=== PATIENT | female | born 1930 | race American Indian/Alaskan Native ===

== ENCOUNTER 2017-06-03 16:28 | Inpatient (IN) | payer MEDICARE ==
[2017-06-03 16:38] VITALS: BMI 33.4
--- NOTE | 2017-06-03 17:29 | C.PDOC ---
History Of Present Illness <Paulette Fritz - Last Filed: 06/03/17 17:44> <Zoraida Davis - Last Filed: 06/03/17 23:04> 86 yr old female with PMHx of Dementia and Alzheimer's disease, sent to the ER by Dr. Diaz for evaluation of SOB and possible fluids in the lung. Son at bedside reports the patient as admitted at [facility] for 1 week and was discharged 3 days ago and he took the patient to the doctor for a check up today. Son also reports the patient has also been complaining of bilateral knee pain and ROS is limited from patient. Son denies fever, vomiting or LOC. (Zoraida Davis) <Paulette Fritz - Last Filed: 06/03/17 17:44> History Per: Family (Son) Onset/Duration Of Symptoms: Days <Zoraida Davis - Last Filed: 06/03/17 23:04> Time Seen by Provider: 06/03/17 17:15 Chief Complaint (Nursing): Shortness Of Breath Past Medical History Reviewed: Historical Data, Nursing Documentation, Vital Signs - Medical History PMH: Alzheimer's Disease, Dementia, HTN, Hypercholesterolemia, Chronic Kidney Disease Family History: States: No Known Family Hx - Social History Hx Tobacco Use: No Hx Alcohol Use: No Hx Substance Use: No - Immunization History Hx Tetanus Toxoid Vaccination: No Hx Influenza Vaccination: No Hx Pneumococcal Vaccination: No <Zoraida Davis - Last Filed: 06/03/17 23:04> Vital Signs: Last Vital Signs Temp 97.5 F L 06/03/17 20:08 Pulse 62 06/03/17 20:54 Resp 18 06/03/17 20:21 BP 135/83 06/03/17 20:08 Pulse Ox 95 06/03/17 20:08 - [facility] Procedures INSERT OF MONITOR DEV INTO CHEST SUBCU/FASCIA, OPEN APPROACH (10/04/16) Review Of Systems Except As Marked, All Systems Reviewed And Found Negative. Constitutional: Negative for: Fever Gastrointestinal: Negative for: Vomiting <Zoraida Davis - Last Filed: 06/03/17 23:04> Physical Exam - Physical Exam Appears: Non-toxic, No Acute Distress Skin: Warm, Dry, No Rash Head: Atraumatic, Normacephalic Oral Mucosa: Moist Cardiovascular: Rhythm Irregular (Irregular regular rhythm) Respiratory: No Wheezing, Other ((+) Crackles in the right base) Extremity: Normal ROM, No Swelling Neurological/Psych: Other (Patient is alert and oriented x2.) <Zoraida Davis - Last Filed: 06/03/17 23:04> ED Course And Treatment - Laboratory Results Result Diagrams: 06/03/17 17:29 06/03/17 17:29 ECG: Interpreted By Me ECG Rhythm: Sinus Rhythm Interpretation Of ECG: ekg shows NSR at 66BPM,occasional APC's,intervals all wnl,no acute st or t wave abnormalities. Rate From EC (BPM) O2 Sat by Pulse Oximetry: 98 (RA) Pulse Ox Interpretation: Normal <Zoraida Davis - Last Filed: 06/03/17 23:04> Disposition <Paulette Fritz - Last Filed: 06/03/17 17:44> Discussed With : Estela Diaz - Disposition Disposition Time: 17:41 <Zoraida Davis - Last Filed: 06/03/17 23:04> - Disposition Condition: GUARDED - Clinical Impression Clinical Impression: Arrhythmia, SOB (shortness of breath), Chronic congestive heart failure <Paulette Fritz - Last Filed: 06/03/17 17:44> - Scribe Statement The provider has reviewed the documentation as recorded by the Scribe <Zoraida Davis - Last Filed: 06/03/17 23:04> - Scribe Statement Becki Ornelas (Zoraida Davis) Provider Attestation: All medical record entries made by the Scribe were at my direction and personally dictated by me. I have reviewed the chart and agree that the record accurately reflects my personal performance of the history, physical exam, medical decision making, and the department course for this patient. I have also personally directed, reviewed, and agree with the discharge instructions and disposition. (Zoraida Davis) Decision To Admit - . Admitting Physician: Estela Diaz <Paulette Fritz - Last Filed: 06/03/17 17:44> - Pt Status Changed To: Hospital Disposition Of: Observation - . Bed Request Type: Telemetry <Zoraida Davis - Last Filed: 06/03/17 23:04> - . Patient Diagnosis: Arrhythmia, SOB (shortness of breath), Chronic congestive heart failure
[2017-06-03 17:43] LABS: CHLORIDE 102 mmol/L (98-107); SODIUM 140 mmol/L (132-148)
[2017-06-03 17:45] LABS: GFR AFRICAN-AMERICAN 37
[2017-06-03 17:46] LABS: ALB/GLOB RATIO 1.1 (1.0-2.1); ALKALINE PHOSPHATASE 70 U/L (38-126); ALT/SGPT 53 U/L (9-52); AST/SGOT 44 U/L (14-36); BILIRUBIN,TOTAL 0.7 mg/dL (0.2-1.3); BLOOD UREA NITROGEN 44 mg/dL (7-17); CALCIUM 9.8 mg/dl (8.6-10.4); CARBON DIOXIDE 19 mmol/L (22-30); GLUCOSE,RANDOM 87 mg/dL (65-105); POTASSIUM 5.6 mmol/L (3.6-5.2); TOTAL PROTEIN 8.3 g/dL (6.3-8.3)
--- NOTE | 2017-06-03 18:07 | RAD ---
HISTORY: SOB COMPARISON: Chest x-ray performed 10/04/16 TECHNIQUE: Chest, one view. FINDINGS: Examination limited by habitus. LUNGS: Rectangular radiopaque device projects over the right upper mediastinum/right upper lobe. Right hilar prominence. No focal consolidation. Please note that chest x-ray has limited sensitivity for the detection of pulmonary masses. PLEURA: No significant pleural effusion identified. No definite pneumothorax . CARDIOVASCULAR: Mild cardiomegaly. Atherosclerotic calcifications of the aortic knob. Ectatic aorta. OSSEOUS STRUCTURES: Degenerative changes. VISUALIZED UPPER ABDOMEN: Unremarkable. OTHER FINDINGS: None. IMPRESSION: Biapical pleural thickening. Right hilar prominence. Rectangular radiopaque device projects over the right upper mediastinum/right upper lobe. Mild cardiomegaly. Atherosclerotic calcifications of the aortic knob. Ectatic aorta.
[2017-06-03 18:30] LABS: BASO % 0.6 % (0.0-2.0); EOS # 0.3 K/uL (0.0-0.7); HEMATOCRIT 42.2 % (34.0-47.0); LYMPH # 2.4 K/uL (1.0-4.3); LYMPH % 34.7 % (20.0-40.0); MEAN CELL VOLUME 98.3 fL (81.0-99.0); MEAN CORPUSCULAR HEMOGLOBIN 32.3 pg (27.0-31.0); MEAN CORPUSCULAR HGB CONC 32.9 g/dL (33.0-37.0); MEAN PLATELET VOLUME 9.9 fL (7.2-11.7); MONO # 0.6 K/uL (0.0-0.8); MONO % 8.3 % (0.0-10.0); NRBC % 0.1 % (0.0-2.0); RED CELL DISTRIBUTION WIDTH 15.6 % (11.5-14.5); WHITE BLOOD COUNT 6.8 K/uL (4.8-10.8)
[2017-06-03] MEDS: Albuterol-Ipratrop 3 mg / 0.5 (3 ml) UD INH SCH (20:04)
[2017-06-03 20:24] LABS: ABG ALLEN TEST POS; DRAW SITE LRADIAL
[2017-06-04] MEDS: Albuterol-Ipratrop 3 mg / 0.5 (3 ml) UD INH SCH ×4 (01:20→19:35)
[2017-06-04] MEDS ORDERED: Heparin25000 units/250ml 1/2NS 25,000 UNITS/250 ML BAG IV PRN (11:13)
--- NOTE | 2017-06-04 11:18 | CP.PCM.PN ---
Subjective - Date & Time of Evaluation Date of Evaluation: 06/04/17 Time of Evaluation: 11:17 - Subjective Subjective: PT SEEN BY DR. ECHAVARRIA DURING ROUNDS. DISCUSSED RECOMMENDATIONS FOR TREATMENT WITH DR. ECHAVARRIA. AT THIS TIME HE IS RECOMMENDING A HEPARIN GTT (D/C HEPARIN PROPHYLACTIC DOSE), CTA OR VQ TO R/O PE CONSIDERING EVELATED DDIMER, AND REPEAT ECHO (LAST ONE DONE 10/04/16). WILL F/U WITH RESULTS AND WILL DISCUSS THIS WITH DR. SHELBY. Objective - Vital Signs/Intake and Output Vital Signs (last 24 hours): Temp Pulse Resp BP Pulse Ox 97.4 F L 64 20 103/62 95 06/04/17 07:30 06/04/17 08:45 06/04/17 07:30 06/04/17 07:30 06/04/17 07:30 - Medications Medications: Current Medications Albuterol/Ipratropium (Duoneb 3 Mg/0.5 Mg (3 Ml) Ud) 3 ml INH RQ6 [facility] Last Admin: 06/04/17 08:03 Dose: 3 ml Aspirin (Ecotrin) 81 mg PO DAILY [facility] Last Admin: 06/04/17 09:23 Dose: 81 mg Donepezil HCl (Aricept) 1 mg PO HS [facility] Last Admin: 06/03/17 21:39 Dose: 1 mg Heparin Sodium/Sodium Chloride (Heparin 07527 Units/250ml 1/2 Normal Saline) 25 ,000 units in 250 mls @ 13.227 mls/hr IV .[id number] PRN; Protocol; 18 UNITS/KG/HR PRN Reason: ADJUST RATE PER PROTOCOL Quetiapine Fumarate (Seroquel) 25 mg PO DAILY [facility] Last Admin: 06/04/17 09:23 Dose: 25 mg Quetiapine Fumarate (Seroquel) 25 mg PO BID [facility] Last Admin: 06/04/17 11:04 Dose: Not Given Rosuvastatin Calcium (Crestor) 5 mg PO HS [facility] Last Admin: 06/03/17 21:39 Dose: 5 mg - Labs Labs: 06/03/17 17:29 06/03/17 17:29
[2017-06-04 12:01] LABS: HEMATOCRIT 37.8 % (34.0-47.0); MEAN CELL VOLUME 96.6 fL (81.0-99.0); MEAN CORPUSCULAR HEMOGLOBIN 32.8 pg (27.0-31.0); MEAN CORPUSCULAR HGB CONC 33.9 g/dL (33.0-37.0); MEAN PLATELET VOLUME 10.2 fL (7.2-11.7); RED CELL DISTRIBUTION WIDTH 15.3 % (11.5-14.5)
[2017-06-04 12:33] LABS: POTASSIUM 4.3 mmol/L (3.6-5.2)
[2017-06-04 12:35] LABS: BILIRUBIN,TOTAL 0.7 mg/dL (0.2-1.3)
[2017-06-04 12:36] LABS: ALB/GLOB RATIO 1.1 (1.0-2.1); CALCIUM 9.5 mg/dl (8.6-10.4); TOTAL PROTEIN 7.6 g/dL (6.3-8.3)
--- NOTE | 2017-06-04 13:46 | CP.PCM.CON ---
<Pacheco Benites - Last Filed: 06/04/17 18:47> History of Present Illness - History of Present Illness History of Present Illness: Cardiology Consult Note- Dr. Yanes's service CC: shortness of breath HPI: 86 year old female with past medical history significant for Alzheimer's disease, HTN, hypercholesterolemia and chronic kidney disease presents with chief complaint of shortness of breath as well as suspected pleural effusion by primary provider, Dr. Diaz. Per family, patient was recently at [facility] with recent discharge for dyspnea as well. Patient had previously been short of breath for the past two weeks. A workup was done which ruled out pulmonary embolism. Prior to this, patient was admitted here at [facility] earlier in the year for shortness of breath yet again. Patient denies chest pain, palpitations, dyspnea, headaches, subjective fevers or chills, nausea, vomiting , or diarrhea at this time. Parts of the history obtained from medical record due to patient's somnolent presentation. PMHx- as mentioned above PSHx- Colectomy in 2003, Portacath placement for colon cancer treatment Fam Hx- Noncontributory Meds- Refer to [facility] Social Hx- Unknown smoking history, no alcohol or drug use; Lives with family Allergies- NKDA Review of Systems - Constitutional Constitutional: absent: Anorexia, Chills - EENT Eyes: absent: Blurred Vision, Change in Vision - Cardiovascular Cardiovascular: Dyspnea. absent: Chest Pain, Chest Pain at Rest - Respiratory Respiratory: Dyspnea - Gastrointestinal Gastrointestinal: absent: Abdominal Pain, Nausea, Vomiting - Genitourinary Genitourinary: absent: Difficulty Urinating - Musculoskeletal Musculoskeletal: As Per HPI, Arthralgias. absent: Numbness - Integumentary Integumentary: Dry Skin - Neurological Neurological: absent: Tremor, Weakness - Psychiatric Psychiatric: Memory Loss Past Patient History - Past Medical History & Family History Past Medical History?: Yes - Past Social History Smoking Status: Former Smoker - CARDIAC Hx Hypercholesterolemia: Yes Hx Hypertension: Yes - PULMONARY Hx Respiratory Disorders: Yes Hx Bronchitis: Yes Hx Chronic Obstructive Pulmonary Disease (COPD): Yes - NEUROLOGICAL Hx Alzheimer's Disease: Yes Hx Dementia: Yes - HEENT Hx HEENT Problems: No Other/Comment: uses eyeglases - RENAL Hx Chronic Kidney Disease: Yes - ENDOCRINE/METABOLIC Hx Endocrine Disorders: No - HEMATOLOGICAL/ONCOLOGICAL Hx Blood Disorders: No - INTEGUMENTARY Hx Dermatological Problems: No - MUSCULOSKELETAL/RHEUMATOLOGICAL Hx Musculoskeletal Disorders: Yes Hx Arthritis: Yes (bilateral knee pain) Hx Falls: Yes (6 mos ago) - GASTROINTESTINAL Hx Gastrointestinal Disorders: No - GENITOURINARY/GYNECOLOGICAL Hx Genitourinary Disorders: No - PSYCHIATRIC Hx Substance Use: No - SURGICAL HISTORY Hx Surgeries: Yes Hx Cataract Extraction: Yes Hx Hysterectomy: Yes Other/Comment: colectomy 2004, colon ca ( benign), had portacath inserted and removed for chemo therapy - ANESTHESIA Hx Anesthesia: Yes Hx Anesthesia Reactions: No Hx Malignant Hyperthermia: No Meds Allergies/Adverse Reactions: Allergies Allergy/AdvReac Type Severity Reaction Status Date / Time No Known Allergies Allergy Verified 06/03/17 16:38 - Medications Medications: Current Medications Albuterol/Ipratropium (Duoneb 3 Mg/0.5 Mg (3 Ml) Ud) 3 ml INH RQ6 [facility] Last Admin: 06/04/17 13:18 Dose: Not Given Aspirin (Ecotrin) 81 mg PO DAILY [facility] Last Admin: 06/04/17 09:23 Dose: 81 mg Donepezil HCl (Aricept) 1 mg PO [facility] Last Admin: 06/03/17 21:39 Dose: 1 mg Heparin Sodium/Sodium Chloride (Heparin 86606 Units/250ml 1/2 Normal Saline) 25 ,000 units in 250 mls @ 13.227 mls/hr IV .[id number] PRN; Protocol; 18 UNITS/KG/HR PRN Reason: ADJUST RATE PER PROTOCOL Quetiapine Fumarate (Seroquel) 25 mg PO DAILY [facility] Last Admin: 06/04/17 09:23 Dose: 25 mg Quetiapine Fumarate (Seroquel) 25 mg PO BID [facility] Last Admin: 06/04/17 11:04 Dose: Not Given Rosuvastatin Calcium (Crestor) 5 mg PO [facility] Last Admin: 06/03/17 21:39 Dose: 5 mg Physical Exam - Constitutional Appears: Non-toxic, No Acute Distress Additional comments: large body habitus - Head Exam Head Exam: ATRAUMATIC, NORMAL INSPECTION, NORMOCEPHALIC - Eye Exam Eye Exam: EOMI, Normal appearance, PERRL - ENT Exam ENT Exam: Mucous Membranes Moist - Neck Exam Neck exam: Positive for: Full Rom - Respiratory Exam Respiratory Exam: NORMAL BREATHING PATTERN. absent: Wheezes - Cardiovascular Exam Cardiovascular Exam: +S1, +S2. absent: Systolic Murmur - GI/Abdominal Exam GI & Abdominal Exam: Normal Bowel Sounds, Soft - Extremities Exam Extremities exam: Positive for: full ROM, pedal pulses present. Negative for: joint swelling - Back Exam Back exam: FULL ROM - Neurological Exam Neurological exam: Altered - Psychiatric Exam Psychiatric exam: Normal Affect, Normal Mood - Skin Skin Exam: Dry, Normal Color Results - Vital Signs Recent Vital Signs: Last Vital Signs Temp 97.4 F L 06/04/17 07:30 Pulse 64 06/04/17 08:45 Resp 20 06/04/17 07:30 BP 103/62 06/04/17 07:30 Pulse Ox 95 06/04/17 07:30 - Labs Result Diagrams: 06/04/17 11:45 06/04/17 11:45 Labs: Laboratory Results - last 24 hr 06/03/17 06/03/17 06/03/17 17:29 17:29 17:29 WBC 6.8 RBC 4.30 Hgb 13.9 Hct 42.2 MCV 98.3 MCH 32.3 H MCHC 32.9 L RDW 15.6 H Plt Count 135 MPV 9.9 Neut % (Auto) 52.4 Lymph % (Auto) 34.7 [place] % (Auto) 8.3 Eos % (Auto) 4.0 Baso % (Auto) 0.6 Neut # 3.5 Lymph # 2.4 [place] # 0.6 Eos # 0.3 Baso # 0.0 PT INR APTT D-Dimer, Quantitative 913 H Puncture Site pCO2 pO2 HCO3 ABG pH ABG Total CO2 ABG O2 Saturation ABG Base Excess Misael Test ABG Potassium A-a O2 Difference Respiratory Index Glucose Lactate FiO2 Sodium 140 Potassium 5.6 H Chloride 102 Carbon Dioxide 19 L Anion Gap 25 H BUN 44 H Creatinine 1.6 H Est GFR ( Amer) 37 Est GFR (Non-Af Amer) 30 Random Glucose 87 Calcium 9.8 Total Bilirubin 0.7 AST 44 H ALT 53 H D Alkaline Phosphatase 70 Troponin I < 0.0120 NT-Pro-B Natriuret Pep 90.6 Total Protein 8.3 Albumin 4.3 Globulin 4.0 H Albumin/Globulin Ratio 1.1 Arterial Blood Potassium Serum Ketones Negative 06/03/17 06/04/17 06/04/17 20:20 11:45 11:45 WBC 5.0 RBC 3.91 Hgb 12.8 Hct 37.8 MCV 96.6 MCH 32.8 H MCHC 33.9 RDW 15.3 H Plt Count 130 MPV 10.2 Neut % (Auto) Lymph % (Auto) [place] % (Auto) Eos % (Auto) Baso % (Auto) Neut # Lymph # [place] # Eos # Baso # PT 11.8 INR 1.0 APTT 29 D-Dimer, Quantitative Puncture Site Lradial pCO2 39 pO2 86 HCO3 25.0 ABG pH 7.41 ABG Total CO2 25.9 ABG O2 Saturation 97.9 ABG Base Excess 0.1 Misael Test Pos ABG Potassium 4.4 A-a O2 Difference 15.0 Respiratory Index 0.2 Glucose 81 Lactate 0.8 FiO2 21.0 Sodium 138.0 Potassium Chloride 106.0 Carbon Dioxide Anion Gap BUN Creatinine Est GFR ( Amer) Est GFR (Non-Af Amer) Random Glucose Calcium Total Bilirubin AST ALT Alkaline Phosphatase Troponin I NT-Pro-B Natriuret Pep Total Protein Albumin Globulin Albumin/Globulin Ratio Arterial Blood Potassium 4.4 Serum Ketones 06/04/17 11:45 WBC RBC Hgb Hct MCV MCH MCHC RDW Plt Count MPV Neut % (Auto) Lymph % (Auto) [place] % (Auto) Eos % (Auto) Baso % (Auto) Neut # Lymph # [place] # Eos # Baso # PT INR APTT D-Dimer, Quantitative Puncture Site pCO2 pO2 HCO3 ABG pH ABG Total CO2 ABG O2 Saturation ABG Base Excess Misael Test ABG Potassium A-a O2 Difference Respiratory Index Glucose Lactate FiO2 Sodium 138 Potassium 4.3 Chloride 100 Carbon Dioxide 23 Anion Gap 18 BUN 38 H Creatinine 1.6 H Est GFR ( Amer) 37 Est GFR (Non-Af Amer) 30 Random Glucose 117 H Calcium 9.5 Total Bilirubin 0.7 AST 32 ALT 43 Alkaline Phosphatase 59 Troponin I NT-Pro-B Natriuret Pep Total Protein 7.6 Albumin 4.0 Globulin 3.6 Albumin/Globulin Ratio 1.1 Arterial Blood Potassium Serum Ketones Assessment & Plan (1) Dyspnea Assessment and Plan: CXR: No interval infiltrate or effusion or pneumothorax identified; stable cardiomegaly Elevated D-Dimer Prior Echo obtained in 10/2016- identified an EF within normal limits suggestive of chronic diastolyic dysfunction. Recheck Echo 06/04- F/U Lung V/Q can- Low probability for Pulmonary Embolism On Heparin Drip Monitor Status: Chronic (2) HTN (hypertension) Assessment and Plan: Normotensive at this time. Was previously on Cozaar and HCTZ in the past. Need to confirm which medications patient has been taking for blood pressure control, if any. Continue to monitor Status: Chronic (3) Renal insufficiency Assessment and Plan: Avoid nephrotoxic meds Continue to monitor Status: Chronic (4) Hypercholesteremia Assessment and Plan: On Crestor 5 mg PO HS Status: Chronic (5) Prophylactic measure Assessment and Plan: SCDs GI Prophylaxis not indicated at this point Status: Acute - Assessment and Plan (Free Text) Assessment: Discussed with attending. Planning and management per Dr. Yanes <Ivan Yanes - Last Filed: 06/04/17 21:43> Meds - Medications Medications: Current Medications Albuterol/Ipratropium (Duoneb 3 Mg/0.5 Mg (3 Ml) Ud) 3 ml INH RQ6 [facility] Last Admin: 06/04/17 19:35 Dose: 3 ml Aspirin (Ecotrin) 81 mg PO DAILY [facility] Last Admin: 06/04/17 09:23 Dose: 81 mg Donepezil HCl (Aricept) 1 mg PO HS [facility] Last Admin: 06/04/17 21:18 Dose: 1 mg Heparin Sodium/Sodium Chloride (Heparin 14545 Units/250ml 1/2 Normal Saline) 25 ,000 units in 250 mls @ 13.227 mls/hr IV .[id number] PRN; Protocol; 18 UNITS/KG/HR PRN Reason: ADJUST RATE PER PROTOCOL Quetiapine Fumarate (Seroquel) 25 mg PO DAILY [facility] Last Admin: 06/04/17 09:23 Dose: 25 mg Quetiapine Fumarate (Seroquel) 25 mg PO BID [facility] Last Admin: 06/04/17 17:36 Dose: 25 mg Rosuvastatin Calcium (Crestor) 5 mg PO HS [facility] Last Admin: 06/04/17 21:18 Dose: 5 mg Results - Vital Signs Recent Vital Signs: Last Vital Signs Temp 97.7 F 06/04/17 16:00 Pulse 66 06/04/17 16:41 Resp 18 06/04/17 16:00 BP 126/82 06/04/17 16:00 Pulse Ox 97 06/04/17 16:00 - Labs Result Diagrams: 06/04/17 11:45 06/04/17 11:45 Labs: Laboratory Results - last 24 hr 06/04/17 06/04/17 06/04/17 11:45 11:45 11:45 WBC 5.0 RBC 3.91 Hgb 12.8 Hct 37.8 MCV 96.6 MCH 32.8 H MCHC 33.9 RDW 15.3 H Plt Count 130 MPV 10.2 PT 11.8 INR 1.0 APTT 29 Sodium 138 Potassium 4.3 Chloride 100 Carbon Dioxide 23 Anion Gap 18 BUN 38 H Creatinine 1.6 H Est GFR ( Amer) 37 Est GFR (Non-Af Amer) 30 Random Glucose 117 H Calcium 9.5 Total Bilirubin 0.7 AST 32 ALT 43 Alkaline Phosphatase 59 Total Protein 7.6 Albumin 4.0 Globulin 3.6 Albumin/Globulin Ratio 1.1 Assessment & Plan - Assessment and Plan (Free Text) Assessment: Patient seen and evaluated with the medical device sales consultant Plan of care as documented
--- NOTE | 2017-06-04 13:46 | CP.PCM.PN ---
Subjective - Date & Time of Evaluation Date of Evaluation: 06/04/17 Time of Evaluation: 10:45 Objective - Vital Signs/Intake and Output Vital Signs (last 24 hours): Temp Pulse Resp BP Pulse Ox 97.4 F L 64 20 103/62 95 06/04/17 07:30 06/04/17 08:45 06/04/17 07:30 06/04/17 07:30 06/04/17 07:30 - Medications Medications: Current Medications Albuterol/Ipratropium (Duoneb 3 Mg/0.5 Mg (3 Ml) Ud) 3 ml INH RQ6 [facility] Last Admin: 06/04/17 13:18 Dose: Not Given Aspirin (Ecotrin) 81 mg PO DAILY [facility] Last Admin: 06/04/17 09:23 Dose: 81 mg Donepezil HCl (Aricept) 1 mg PO HS [facility] Last Admin: 06/03/17 21:39 Dose: 1 mg Heparin Sodium/Sodium Chloride (Heparin 50744 Units/250ml 1/2 Normal Saline) 25 ,000 units in 250 mls @ 13.227 mls/hr IV .[id number] PRN; Protocol; 18 UNITS/KG/HR PRN Reason: ADJUST RATE PER PROTOCOL Quetiapine Fumarate (Seroquel) 25 mg PO DAILY [facility] Last Admin: 06/04/17 09:23 Dose: 25 mg Quetiapine Fumarate (Seroquel) 25 mg PO BID [facility] Last Admin: 06/04/17 11:04 Dose: Not Given Rosuvastatin Calcium (Crestor) 5 mg PO HS [facility] Last Admin: 06/03/17 21:39 Dose: 5 mg - Labs Labs: 06/04/17 11:45 06/04/17 11:45 PT 11.8 SECONDS (9.7-12.2) 06/04/17 11:45 INR 1.0 06/04/17 11:45 APTT 29 SECONDS (21-34) 06/04/17 11:45
--- NOTE | 2017-06-04 16:04 | RAD ---
HISTORY: verify right PICC COMPARISON: Portable chest 06/03/2017. FINDINGS: Interval right upper extremity PICC is been inserted terminating at the distal superior vena cava. An event recorder is again seen the right chest. LUNGS: No active pulmonary disease. PLEURA: No significant pleural effusion identified, no pneumothorax apparent. CARDIOVASCULAR: Stable cardiomegaly appreciated. No pulmonary derangement is evident. OSSEOUS STRUCTURES: No significant abnormalities. VISUALIZED UPPER ABDOMEN: Normal. OTHER FINDINGS: None. IMPRESSION: Interval right abstract PICC insertion as discussed above. No interval infiltrate pleural effusion or pneumothorax identified. Cardiomegaly appears stable.
--- NOTE | 2017-06-04 16:28 | NM ---
COMPARISON: 06/04/2017 TECHNIQUE: 10.3 mCi technetium 99-m Xe-133 Gas. 3.9 mCI technetium 99-m MAA administered intravenously. FINDINGS: VENTILATION COMPONENT: Nondiagnostic ventilatory component. PERFUSION COMPONENT: Heterogeneous distribution of radionuclide. No geographic, segmental, lobar abnormalities apparent on the present examination. IMPRESSION: Low probability perfusion scan for pulmonary embolism.
[2017-06-05] MEDS: Albuterol-Ipratrop 3 mg / 0.5 (3 ml) UD INH SCH ×4 (01:11→19:17)
[2017-06-05] MEDS: Enoxaparin 30 mg Syringe SC SCH (09:25)
--- NOTE | 2017-06-05 10:29 | CARD ---
APPROVED REPORT EXAM: Two-dimensional and M-mode echocardiogram with Doppler and color Doppler. Other Information Quality : GoodRhythm : INDICATION CVA/TIA Dyspnea LV Function:Systolic Chest Pain COPD RISK FACTORS Hypertension 2D DIMENSIONS IVSd0.9 (0.7-1.1cm)LVDd3.5 (3.9-5.9cm) LVOT Diameter1.8 (1.8-2.4cm)PWd1.2 (0.7-1.1cm) LVDs2.3 (2.5-4.0cm)FS (%) 32.9 % LVEF (%)62.4 (>50%) M-Mode DIMENSIONS Left Atrium (MM)4.01 (2.5-4.0cm)Aortic Root2.52 (2.2-3.7cm) Aortic Cusp Exc.1.70 (1.5-2.0cm) Aortic Valve AoV Peak Ipjcxkry960.7cm/sAoV VTI40.4cmAO Peak GR.22mmHg LVOT Peak Yzofbkgq006.4cm/sLVOT VTI32.61cmAO Mean GR.11mmHg NATHANAEL (VMAX)1.71xw4LLI (VTI)2.02cm2 Mitral Valve MV E Zawvphrn62.7cm/sMV A Ribmghna512.2cm/sE/A ratio0.8 TDI E/Lateral E'0.0E/Medial E'0.0 Tricuspid Valve TR Peak Lwidqnwq067zr/sTR Peak Gr.92yjIcFUUP98ajJw LEFT VENTRICLE The left ventricle is normal size. There is normal left ventricular wall thickness. Left ventricle systolic function is normal. The Ejection Fraction is 60-65%. There is normal LV segmental wall motion. Tissue Doppler imaging reveals abnormal left ventricular diastolic dysfunction. RIGHT VENTRICLE The right ventricle is normal size. There is normal right ventricular wall thickness. The right ventricular systolic function is normal. ATRIA The left atrium is borderline dilated. The right atrium size is normal. The interatrial septum is intact with no evidence for an atrial septal defect. AORTIC VALVE The aortic valve is normal in structure. No aortic regurgitation is present. There is no aortic valvular stenosis. There is no aortic valvular vegetation. MITRAL VALVE The mitral valve is normal in structure. There is no evidence of mitral valve prolapse. There is no mitral valve stenosis. Mitral regurgitation is mild. TRICUSPID VALVE The tricuspid valve is normal in structure. There is mild to moderate tricuspid regurgitation. Right ventricular systolic pressure is estimated at 40-50 mmHg. There is mild-moderate pulmonary hypertension. PULMONIC VALVE The pulmonic valve is not well visualized. There is no pulmonic valvular regurgitation. GREAT VESSELS The aortic root is normal in size. PERICARDIAL EFFUSION There is no significant pericardial effusion. <Conclusion> Left ventricle systolic function is normal. The Ejection Fraction is 60-65%. Diastolic dysfunction. No aortic regurgitation is present. Mitral regurgitation is mild. There is mild to moderate tricuspid regurgitation. There is mild-moderate pulmonary hypertension. There is no pulmonic valvular regurgitation.
--- NOTE | 2017-06-05 22:38 | CP.PCM.PN ---
Subjective - Date & Time of Evaluation Date of Evaluation: 06/05/17 Time of Evaluation: 10:05 - Subjective Subjective: Patient seen and evaluated No cardiac events noted Review of Systems - Constitutional Constitutional: absent: Anorexia, Chills - EENT Eyes: absent: Blurred Vision, Change in Vision - Cardiovascular Cardiovascular: Dyspnea. absent: Chest Pain, Chest Pain at Rest - Respiratory Respiratory: Dyspnea - Gastrointestinal Gastrointestinal: absent: Abdominal Pain, Nausea, Vomiting - Genitourinary Genitourinary: absent: Difficulty Urinating - Musculoskeletal Musculoskeletal: As Per HPI, Arthralgias. absent: Numbness - Integumentary Integumentary: Dry Skin - Neurological Neurological: absent: Tremor, Weakness - Psychiatric Psychiatric: Memory Loss Physical Exam - Constitutional Appears: Non-toxic, No Acute Distress Additional comments: large body habitus - Head Exam Head Exam: ATRAUMATIC, NORMAL INSPECTION, NORMOCEPHALIC - Eye Exam Eye Exam: EOMI, Normal appearance, PERRL - ENT Exam ENT Exam: Mucous Membranes Moist - Neck Exam Neck exam: Positive for: Full Rom - Respiratory Exam Respiratory Exam: NORMAL BREATHING PATTERN. absent: Wheezes - Cardiovascular Exam Cardiovascular Exam: +S1, +S2. absent: Systolic Murmur - GI/Abdominal Exam GI & Abdominal Exam: Normal Bowel Sounds, Soft - Extremities Exam Extremities exam: Positive for: full ROM, pedal pulses present. Negative for: joint swelling - Back Exam Back exam: FULL ROM - Neurological Exam Neurological exam: Altered - Psychiatric Exam Psychiatric exam: Normal Affect, Normal Mood - Skin Skin Exam: Dry, Normal Color Objective - Vital Signs/Intake and Output Vital Signs (last 24 hours): Temp Pulse Resp BP Pulse Ox 98 F 91 H 20 146/86 100 06/05/17 15:29 06/05/17 15:29 06/05/17 15:29 06/05/17 15:29 06/05/17 15:29 Intake and Output: 06/05/17 06/06/17 18:59 06:59 Intake Total 350 Balance 350 - Medications Medications: Current Medications Albuterol/Ipratropium (Duoneb 3 Mg/0.5 Mg (3 Ml) Ud) 3 ml INH RQ6 [facility] Last Admin: 06/05/17 19:17 Dose: 3 ml Aspirin (Ecotrin) 81 mg PO DAILY [facility] Last Admin: 10/05/17 09:25 Dose: 81 mg Donepezil HCl (Aricept) 1 mg PO HS [facility] Last Admin: 06/05/17 21:11 Dose: 1 mg Enoxaparin Sodium (Lovenox) 30 mg SC DAILY [facility] Last Admin: 06/05/17 09:25 Dose: 30 mg Mirtazapine (Remeron) 7.5 mg PO HS [facility] Last Admin: 06/05/17 21:11 Dose: 7.5 mg Quetiapine Fumarate (Seroquel) 25 mg PO BID [facility] Last Admin: 06/05/17 17:35 Dose: 25 mg Rosuvastatin Calcium (Crestor) 5 mg PO HS [facility] Last Admin: 06/05/17 21:11 Dose: 5 mg - Labs Labs: 06/04/17 11:45 06/04/17 11:45 PT 11.8 SECONDS (9.7-12.2) 06/04/17 11:45 INR 1.0 06/04/17 11:45 APTT 29 SECONDS (21-34) 06/04/17 11:45 Assessment and Plan - Assessment and Plan (Free Text) Assessment: (1) Dyspnea Assessment and Plan: CXR: No interval infiltrate or effusion or pneumothorax identified; stable cardiomegaly Elevated D-Dimer Prior Echo obtained in 10/2016- identified an EF within normal limits suggestive of chronic diastolyic dysfunction. Recheck Echo 06/04- F/U Lung V/Q can- Low probability for Pulmonary Embolism Monitor Status: Chronic (2) HTN (hypertension) Assessment and Plan: Continue to monitor Status: Chronic (3) Renal insufficiency Assessment and Plan: Avoid nephrotoxic meds Continue to monitor Status: Chronic (4) Hypercholesteremia Assessment and Plan: On Crestor 5 mg PO HS Status: Chronic (5) Prophylactic measure Assessment and Plan: SCDs GI Prophylaxis not indicated at this point Status: Acute
[2017-06-05] MEDS ORDERED: Tramadol 25 mg PO PRN (23:19)
[2017-06-06] MEDS: Albuterol-Ipratrop 3 mg / 0.5 (3 ml) UD INH SCH ×4 (01:41→19:35)
[2017-06-06] MEDS: Enoxaparin 30 mg Syringe SC SCH (10:21)
[2017-06-06 12:58] LABS: POTASSIUM 4.4 mmol/L (3.6-5.2)
[2017-06-06 13:01] LABS: HEMATOCRIT 37.1 % (34.0-47.0); RED CELL DISTRIBUTION WIDTH 15.6 % (11.5-14.5); WHITE BLOOD COUNT 5.6 K/uL (4.8-10.8)
[2017-06-06 13:02] LABS: CALCIUM 9.6 mg/dl (8.6-10.4)
--- NOTE | 2017-06-06 21:32 | CP.PCM.PN ---
Subjective - Date & Time of Evaluation Date of Evaluation: 06/06/17 Time of Evaluation: 21:32 - Subjective Subjective: Is awake and responding. But more drowsy than yesterday. I spoke to the family. Will discontinue all the anxiolytics at this time. Discussed with cardiology. VQ scan ordered. Less likely patient had supple embolism. Continue the Lasix, antihypertensives as needed. DVT GI prophylaxis Objective - Vital Signs/Intake and Output Vital Signs (last 24 hours): Temp Pulse Resp BP Pulse Ox 97.9 F 70 18 125/81 100 06/06/17 07:20 06/06/17 16:00 06/06/17 07:20 06/06/17 07:20 06/06/17 08:00 Intake and Output: 06/06/17 06/07/17 18:59 06:59 Intake Total 350 Balance 350 - Medications Medications: Current Medications Albuterol/Ipratropium (Duoneb 3 Mg/0.5 Mg (3 Ml) Ud) 3 ml INH RQ6 [facility] Last Admin: 06/06/17 19:35 Dose: 3 ml Aspirin (Ecotrin) 81 mg PO DAILY [facility] Last Admin: 06/06/17 10:21 Dose: 81 mg Donepezil HCl (Aricept) 1 mg PO HS [facility] Last Admin: 06/05/17 21:11 Dose: 1 mg Enoxaparin Sodium (Lovenox) 30 mg SC DAILY [facility] Last Admin: 06/06/17 10:21 Dose: 30 mg Mirtazapine (Remeron) 7.5 mg PO HS [facility] Last Admin: 06/05/17 21:11 Dose: 7.5 mg Quetiapine Fumarate (Seroquel) 25 mg PO BID [facility] Last Admin: 06/06/17 18:21 Dose: 25 mg Rosuvastatin Calcium (Crestor) 5 mg PO HS [facility] Last Admin: 06/05/17 21:11 Dose: 5 mg Tramadol HCl (Ultram) 25 mg PO BID PRN PRN Reason: Pain, moderate (4-7) - Labs Labs: 06/06/17 12:46 06/06/17 12:46 PT 11.8 SECONDS (9.7-12.2) 06/04/17 11:45 INR 1.0 06/04/17 11:45 APTT 29 SECONDS (21-34) 06/04/17 11:45
--- NOTE | 2017-06-06 21:32 | CP.PCM.PN ---
Subjective - Date & Time of Evaluation Date of Evaluation: 06/05/17 Time of Evaluation: 21:32 - Subjective Subjective: Spoke to the patient's family today. Patient is somewhat drowsy and sleepy at this time. Poor intake noted. Discussed with cardiology. We'll continue to monitor the status today. Psychotic evaluation if needed and will follow the patient Objective - Vital Signs/Intake and Output Vital Signs (last 24 hours): Temp Pulse Resp BP Pulse Ox 97.9 F 70 18 125/81 100 06/06/17 07:20 06/06/17 16:00 06/06/17 07:20 06/06/17 07:20 06/06/17 08:00 Intake and Output: 06/06/17 06/07/17 18:59 06:59 Intake Total 350 Balance 350 - Medications Medications: Current Medications Albuterol/Ipratropium (Duoneb 3 Mg/0.5 Mg (3 Ml) Ud) 3 ml INH RQ6 [facility] Last Admin: 06/06/17 19:35 Dose: 3 ml Aspirin (Ecotrin) 81 mg PO DAILY [facility] Last Admin: 06/06/17 10:21 Dose: 81 mg Donepezil HCl (Aricept) 1 mg PO HS [facility] Last Admin: 06/05/17 21:11 Dose: 1 mg Enoxaparin Sodium (Lovenox) 30 mg SC DAILY [facility] Last Admin: 06/06/17 10:21 Dose: 30 mg Mirtazapine (Remeron) 7.5 mg PO HS [facility] Last Admin: 06/05/17 21:11 Dose: 7.5 mg Quetiapine Fumarate (Seroquel) 25 mg PO BID [facility] Last Admin: 06/06/17 18:21 Dose: 25 mg Rosuvastatin Calcium (Crestor) 5 mg PO HS [facility] Last Admin: 06/05/17 21:11 Dose: 5 mg Tramadol HCl (Ultram) 25 mg PO BID PRN PRN Reason: Pain, moderate (4-7) - Labs Labs: 06/06/17 12:46 06/06/17 12:46 PT 11.8 SECONDS (9.7-12.2) 06/04/17 11:45 INR 1.0 06/04/17 11:45 APTT 29 SECONDS (21-34) 06/04/17 11:45
--- NOTE | 2017-06-06 21:32 | CP.PCM.HP ---
History of Present Illness - History of Present Illness History of Present Illness: Chief complaint: Shortness of breath History of present illness: 85-year-old female with history of dementia, hypertension, hypercholesterolemia , renal insufficiency and also noted to have pulmonary hypertension came to the emergency room from my office, with increasing symptoms of not feeling well. Patient was recently hospitalized at [facility] with respiratory distress. Patient underwent extensive workup. Patient continued to have symptoms of shortness of breath. According to the family she was not doing well, including poor intake noted, shortness of breath, increasing lethargy noted. Episodes of confusion more noted. Coughing person. Generalized body pain also noted. Past medical history: Dementia, advanced, hypertension or hypercholesterolemia in insufficiency Allergies: No known drug allergies Personal history: Nonsmoker nonalcoholic lives with the family member midline medications: Reviewed Family family history noncontributory Review of system: Patient is not focusing, confused, agitation noted, mumbling. Generalized body pain noted. Upon touching the leg since she's having increasing symptoms of pain. Constipation present Urine output unclear On examination: Vital signs mild tachycardia, hypertension noted. Chest diffuse bilateral wheezing and rales noted. Regular heart sound. Abdomen soft nontender. Extremities bilateral pedal edema noted Labs reviewed Elevated WBC, proBNP noted. Chest x-ray nonspecific Assessment and compression: 85-year-old female with multiple medical history including hypertension hypercholesterolemia renal insufficiency, dementia admitted with worsening shortness of breath. Possible associated decompensated systolic heart failure. Pedal edema chronic venous insufficiency. Advanced dementia, associated delirium. Patient to cardiac status unclear at this time. Will get a cardiology consultation. IV hydration if needed. Will follow the patient Present on Admission - Present on Admission Any Indicators Present on Admission: No History of DVT/PE: No History of Uncontrolled Diabetes: No Urinary Catheter: No Decubitus Ulcer Present: No Past Patient History - Past Medical History & Family History Past Medical History?: Yes - Past Social History Smoking Status: Former Smoker - CARDIAC Hx Hypercholesterolemia: Yes Hx Hypertension: Yes - PULMONARY Hx Respiratory Disorders: Yes Hx Bronchitis: Yes Hx Chronic Obstructive Pulmonary Disease (COPD): Yes - NEUROLOGICAL Hx Alzheimer's Disease: Yes Hx Dementia: Yes - HEENT Hx HEENT Problems: No Other/Comment: uses eyeglases - RENAL Hx Chronic Kidney Disease: Yes - ENDOCRINE/METABOLIC Hx Endocrine Disorders: No - HEMATOLOGICAL/ONCOLOGICAL Hx Blood Disorders: No - INTEGUMENTARY Hx Dermatological Problems: No - MUSCULOSKELETAL/RHEUMATOLOGICAL Hx Musculoskeletal Disorders: Yes Hx Arthritis: Yes (bilateral knee pain) Hx Falls: Yes (6 mos ago) - GASTROINTESTINAL Hx Gastrointestinal Disorders: No - GENITOURINARY/GYNECOLOGICAL Hx Genitourinary Disorders: No - PSYCHIATRIC Hx Substance Use: No - SURGICAL HISTORY Hx Surgeries: Yes Hx Cataract Extraction: Yes Hx Hysterectomy: Yes Other/Comment: colectomy 2003, colon ca ( benign), had portacath inserted and removed for chemo therapy - ANESTHESIA Hx Anesthesia: Yes Hx Anesthesia Reactions: No Hx Malignant Hyperthermia: No Meds Home Medications: Home Medication List Medication Instructions Recorded Confirmed Type Mirtazapine [Remeron] 7.5 mg PO HS tab 06/10/17 Rx Allergies/Adverse Reactions: Allergies Allergy/AdvReac Type Severity Reaction Status Date / Time No Known Allergies Allergy Verified 06/15/17 18:06 Results - Vital Signs Recent Vital Signs: Last Vital Signs Temp 97.9 F 06/06/17 07:20 Pulse 70 06/06/17 16:00 Resp 18 06/06/17 07:20 BP 125/81 06/06/17 07:20 Pulse Ox 100 06/06/17 08:00 - Labs Result Diagrams: 06/11/17 12:20 06/11/17 12:20 Labs: Laboratory Results - last 24 hr 06/06/17 06/06/17 12:46 12:46 WBC 5.6 RBC 3.83 Hgb 12.3 Hct 37.1 MCV 97.0 MCH 32.0 H MCHC 33.0 RDW 15.6 H Plt Count 128 L MPV 10.0 Sodium 140 Potassium 4.4 Chloride 106 Carbon Dioxide 25 Anion Gap 13 BUN 23 H Creatinine 1.4 H Est GFR ( Amer) 43 Est GFR (Non-Af Amer) 36 Random Glucose 90 Calcium 9.6
[2017-06-07] MEDS: Albuterol-Ipratrop 3 mg / 0.5 (3 ml) UD INH SCH ×4 (01:07→19:53)
[2017-06-07 07:38] LABS: HEMATOCRIT 36.2 % (34.0-47.0); MEAN CELL VOLUME 97.8 fL (81.0-99.0); MEAN CORPUSCULAR HEMOGLOBIN 32.9 pg (27.0-31.0); MEAN CORPUSCULAR HGB CONC 33.7 g/dL (33.0-37.0); MEAN PLATELET VOLUME 10.2 fL (7.2-11.7); RED CELL DISTRIBUTION WIDTH 14.8 % (11.5-14.5); WHITE BLOOD COUNT 5.8 K/uL (4.8-10.8)
[2017-06-07 07:54] LABS: CALCIUM 8.7 mg/dl (8.6-10.4)
[2017-06-07] MEDS: Enoxaparin 30 mg Syringe SC SCH (10:55)
[2017-06-07] MEDS ORDERED: Albuterol-Ipratrop 3 mg / 0.5 (3 ml) UD INH STA ×2 (18:03→18:05)
[2017-06-07] MEDS ORDERED: Sodium Chloride 0.9% 1,000 ML IV SCH ×3 (18:15→18:28)
--- NOTE | 2017-06-07 21:10 | CP.PCM.PN ---
Subjective - Date & Time of Evaluation Date of Evaluation: 06/06/17 Time of Evaluation: 16:20 - Subjective Subjective: Patient seen and evaluated Offers no complaints Review of Systems - Constitutional Constitutional: absent: Anorexia, Chills - EENT Eyes: absent: Blurred Vision, Change in Vision - Cardiovascular Cardiovascular: Dyspnea. absent: Chest Pain, Chest Pain at Rest - Respiratory Respiratory: Dyspnea - Gastrointestinal Gastrointestinal: absent: Abdominal Pain, Nausea, Vomiting - Genitourinary Genitourinary: absent: Difficulty Urinating - Musculoskeletal Musculoskeletal: As Per HPI, Arthralgias. absent: Numbness - Integumentary Integumentary: Dry Skin - Neurological Neurological: absent: Tremor, Weakness - Psychiatric Psychiatric: Memory Loss Physical Exam - Constitutional Appears: Non-toxic, No Acute Distress Additional comments: large body habitus - Head Exam Head Exam: ATRAUMATIC, NORMAL INSPECTION, NORMOCEPHALIC - Eye Exam Eye Exam: EOMI, Normal appearance, PERRL - ENT Exam ENT Exam: Mucous Membranes Moist - Neck Exam Neck exam: Positive for: Full Rom - Respiratory Exam Respiratory Exam: NORMAL BREATHING PATTERN. absent: Wheezes - Cardiovascular Exam Cardiovascular Exam: +S1, +S2. absent: Systolic Murmur - GI/Abdominal Exam GI & Abdominal Exam: Normal Bowel Sounds, Soft - Extremities Exam Extremities exam: Positive for: full ROM, pedal pulses present. Negative for: joint swelling - Back Exam Back exam: FULL ROM - Neurological Exam Neurological exam: Altered - Psychiatric Exam Psychiatric exam: Normal Affect, Normal Mood - Skin Skin Exam: Dry, Normal Color Objective - Vital Signs/Intake and Output Vital Signs (last 24 hours): Temp Pulse Resp BP Pulse Ox 98 F 71 18 106/68 100 06/07/17 17:50 06/07/17 17:50 06/07/17 17:50 06/07/17 17:50 06/07/17 17:50 Intake and Output: 06/07/17 06/08/17 18:59 06:59 Intake Total 350 125 Balance 350 125 - Medications Medications: Current Medications Albuterol/Ipratropium (Duoneb 3 Mg/0.5 Mg (3 Ml) Ud) 3 ml INH RQ6 [facility] Last Admin: 06/07/17 19:53 Dose: 3 ml Aspirin (Ecotrin) 81 mg PO DAILY [facility] Last Admin: 06/07/17 10:57 Dose: 81 mg Enoxaparin Sodium (Lovenox) 30 mg SC DAILY [facility] Last Admin: 06/07/17 10:55 Dose: Not Given Sodium Chloride (Sodium Chloride 0.9%) 1,000 mls @ 50 mls/hr IV .Q20H [facility] Stop: 06/07/17 22:30 Last Admin: 06/07/17 18:48 Dose: 50 mls/hr Rosuvastatin Calcium (Crestor) 5 mg PO HS [facility] Last Admin: 06/06/17 21:34 Dose: 5 mg - Labs Labs: 06/07/17 07:20 06/07/17 07:20 PT 11.8 SECONDS (9.7-12.2) 06/04/17 11:45 INR 1.0 06/04/17 11:45 APTT 29 SECONDS (21-34) 06/04/17 11:45 Assessment and Plan - Assessment and Plan (Free Text) Assessment: (1) Dyspnea Assessment and Plan: CXR: No interval infiltrate or effusion or pneumothorax identified; stable cardiomegaly Elevated D-Dimer Prior Echo obtained in 10/2016- identified an EF within normal limits suggestive of chronic diastolyic dysfunction. Recheck Echo 06/04- F/U Lung V/Q can- Low probability for Pulmonary Embolism Monitor Status: Chronic Repeat ECHO: Unremarkable (2) HTN (hypertension) Assessment and Plan: Continue to monitor Status: Chronic (3) Renal insufficiency Assessment and Plan: Avoid nephrotoxic meds Continue to monitor Status: Chronic (4) Hypercholesteremia Assessment and Plan: On Crestor 5 mg PO HS Status: Chronic (5) Prophylactic measure Assessment and Plan: SCDs GI Prophylaxis not indicated at this point Status: Acute
[2017-06-08] MEDS: Albuterol-Ipratrop 3 mg / 0.5 (3 ml) UD INH SCH ×3 (01:27→19:40)
--- NOTE | 2017-06-08 06:39 | CARD ---
APPROVED REPORT EKG Measurement Heart [id number] MD 116P [id number] <Conclusion> Sinus rhythm with premature atrial complexes Left axis deviation Minimal voltage criteria for LVH, may be normal variant Abnormal ECG
--- NOTE | 2017-06-08 21:05 | CP.PCM.PN ---
Subjective - Date & Time of Evaluation Date of Evaluation: 06/07/17 Time of Evaluation: 17:40 - Subjective Subjective: Patient seen and evaluated Offers no complaints Review of Systems - Constitutional Constitutional: absent: Anorexia, Chills - EENT Eyes: absent: Blurred Vision, Change in Vision - Cardiovascular Cardiovascular: Dyspnea. absent: Chest Pain, Chest Pain at Rest - Respiratory Respiratory: Dyspnea - Gastrointestinal Gastrointestinal: absent: Abdominal Pain, Nausea, Vomiting - Genitourinary Genitourinary: absent: Difficulty Urinating - Musculoskeletal Musculoskeletal: As Per HPI, Arthralgias. absent: Numbness - Integumentary Integumentary: Dry Skin - Neurological Neurological: absent: Tremor, Weakness - Psychiatric Psychiatric: Memory Loss Physical Exam - Constitutional Appears: Non-toxic, No Acute Distress Additional comments: large body habitus - Head Exam Head Exam: ATRAUMATIC, NORMAL INSPECTION, NORMOCEPHALIC - Eye Exam Eye Exam: EOMI, Normal appearance, PERRL - ENT Exam ENT Exam: Mucous Membranes Moist - Neck Exam Neck exam: Positive for: Full Rom - Respiratory Exam Respiratory Exam: NORMAL BREATHING PATTERN. absent: Wheezes - Cardiovascular Exam Cardiovascular Exam: +S1, +S2. absent: Systolic Murmur - GI/Abdominal Exam GI & Abdominal Exam: Normal Bowel Sounds, Soft - Extremities Exam Extremities exam: Positive for: full ROM, pedal pulses present. Negative for: joint swelling - Back Exam Back exam: FULL ROM - Neurological Exam Neurological exam: Altered - Psychiatric Exam Psychiatric exam: Normal Affect, Normal Mood - Skin Skin Exam: Dry, Normal Color Objective - Vital Signs/Intake and Output Vital Signs (last 24 hours): Temp Pulse Resp BP Pulse Ox 97.3 F L 82 20 130/73 98 06/08/17 16:36 06/08/17 16:36 06/08/17 16:36 06/08/17 16:36 06/08/17 16:36 Intake and Output: 06/08/17 06/09/17 18:59 06:59 Intake Total 550 Balance 550 - Medications Medications: Current Medications Albuterol/Ipratropium (Duoneb 3 Mg/0.5 Mg (3 Ml) Ud) 3 ml INH RQ6 [facility] Last Admin: 06/08/17 19:40 Dose: 3 ml Aspirin (Ecotrin) 81 mg PO DAILY [facility] Last Admin: 06/08/17 10:52 Dose: 81 mg Enoxaparin Sodium (Lovenox) 30 mg SC DAILY [facility] Last Admin: 06/07/17 10:55 Dose: Not Given Rosuvastatin Calcium (Crestor) 5 mg PO HS [facility] Last Admin: 06/07/17 22:25 Dose: 5 mg - Labs Labs: 06/07/17 07:20 06/07/17 07:20 PT 11.8 SECONDS (9.7-12.2) 06/04/17 11:45 INR 1.0 06/04/17 11:45 APTT 29 SECONDS (21-34) 06/04/17 11:45 Assessment and Plan - Assessment and Plan (Free Text) Assessment: (1) Dyspnea Assessment and Plan: CXR: No interval infiltrate or effusion or pneumothorax identified; stable cardiomegaly Elevated D-Dimer Prior Echo obtained in 10/2016- identified an EF within normal limits suggestive of chronic diastolyic dysfunction. Recheck Echo 06/04- F/U Lung V/Q can- Low probability for Pulmonary Embolism Monitor Status: Chronic Repeat ECHO: Unremarkable (2) HTN (hypertension) Assessment and Plan: Continue to monitor Status: Chronic (3) Renal insufficiency Assessment and Plan: Avoid nephrotoxic meds Continue to monitor Status: Chronic (4) Hypercholesteremia Assessment and Plan: On Crestor 5 mg PO HS Status: Chronic (5) Prophylactic measure Assessment and Plan: SCDs GI Prophylaxis not indicated at this point Status: Acute
[2017-06-10] MEDS: Albuterol-Ipratrop 3 mg / 0.5 (3 ml) UD INH SCH ×5 (01:19→21:04)
--- NOTE | 2017-06-10 12:27 | PCM.HF ---
Heart Failure Core Measure - Heart Failure Ejection Fraction: 40 % or Greater JEFF Inhibitor Prescribed: No Contraindication/Reason for not providing: RENAL INSUFFICIENCY Beta-Jose Prescribed: None Contraindication/Reason for not providing: EF >40 Angiotensin II Receptor Jose Prescribed: Yes AnticoagulationTherapy for Atrial Fibrillation/Atrialflutter: No Contraindication/Reason for not providing: NO AFIB Aldosterone Antagonist Prescribed: No Contraindication/Reason for not providing: RENAL INSUFFICIENCY; EF > 40 Hydralazine Nitrate Prescribed: No Contraindication/Reason for not providing: RENAL INSUFFICIENCY; EF > 40 Implantable Cardioverter Defibrillator Therapy: No Contraindication/Reason for not providing: EF >40 Cardiac Resynchronization Therapy Prescribed: No Contraindication/Reason for not providing: EF > 40 - Follow up Will be discharged to: Home Follow Up Date (must be within 7 days from discharge): 06/17/17 Follow Up Time: 09:00
--- NOTE | 2017-06-10 12:28 | CP.PCM.PN ---
Subjective - Date & Time of Evaluation Date of Evaluation: 06/10/17 Time of Evaluation: 12:28 - Subjective Subjective: PT CLEARED FOR D/C PER Marco A SHELBY. DISH UP PERSON DISCUSSED YESTERDAY WITH PT'S SON, ANDRESSA, AND DAUGHTER, FREEMAN A D/C PLAN AND THEY ARE IN AGREEMENT WITH D/C HOME TODAY. DISCUSSED AGAIN POSSIBILITY OF ALIX YESTERDAY HOWEVER FAMILY REFUSED AND WILL CONTINUE HOME PHY THER ALREADY ARRANGED FROM [facility] [place] [place] ADMISSION. TRANSPORTATION TO BE ARRANGED ONCE SON ANDRESSA ARRIVES TODAY. NO FURTHER ORDERS. Objective - Vital Signs/Intake and Output Vital Signs (last 24 hours): Temp Pulse Resp BP Pulse Ox 98.2 F 75 20 117/73 94 L 06/10/17 07:00 06/10/17 07:00 06/10/17 07:00 06/10/17 07:00 06/10/17 07:00 - Medications Medications: Current Medications Albuterol/Ipratropium (Duoneb 3 Mg/0.5 Mg (3 Ml) Ud) 3 ml INH RQ6 [facility] Last Admin: 06/10/17 08:48 Dose: 3 ml Aspirin (Ecotrin) 81 mg PO DAILY [facility] Last Admin: 06/10/17 09:29 Dose: 81 mg Enoxaparin Sodium (Lovenox) 30 mg SC DAILY [facility] Last Admin: 06/07/17 10:55 Dose: Not Given Rosuvastatin Calcium (Crestor) 5 mg PO HS [facility] Last Admin: 06/09/17 23:00 Dose: 5 mg - Labs Labs: 06/07/17 07:20 06/07/17 07:20 PT 11.8 SECONDS (9.7-12.2) 06/04/17 11:45 INR 1.0 06/04/17 11:45 APTT 29 SECONDS (21-34) 06/04/17 11:45
--- NOTE | 2017-06-10 19:28 | CP.PCM.PN ---
Subjective - Date & Time of Evaluation Date of Evaluation: 06/10/17 Time of Evaluation: 19:28 - Subjective Subjective: She is more awake and responding. Intake is very poor. Spoke to the family. Discussed with the family in details. Family is agreeing for her to go to the rehabilitation. We'll continue to monitor in the rehabilitation Objective - Vital Signs/Intake and Output Vital Signs (last 24 hours): Temp Pulse Resp BP Pulse Ox 97.9 F 89 20 102/71 99 06/10/17 15:23 06/10/17 15:23 06/10/17 15:23 06/10/17 15:23 06/10/17 15:23 Intake and Output: 06/10/17 06/11/17 18:59 06:59 Intake Total 240 Balance 240 - Medications Medications: Current Medications Albuterol/Ipratropium (Duoneb 3 Mg/0.5 Mg (3 Ml) Ud) 3 ml INH RQ6 [facility] Last Admin: 06/10/17 13:39 Dose: Not Given Aspirin (Ecotrin) 81 mg PO DAILY [facility] Last Admin: 06/10/17 09:29 Dose: 81 mg Enoxaparin Sodium (Lovenox) 30 mg SC DAILY [facility] Last Admin: 06/07/17 10:55 Dose: Not Given Rosuvastatin Calcium (Crestor) 5 mg PO HS [facility] Last Admin: 06/09/17 23:00 Dose: 5 mg - Labs Labs: 06/07/17 07:20 06/07/17 07:20 PT 11.8 SECONDS (9.7-12.2) 06/04/17 11:45 INR 1.0 06/04/17 11:45 APTT 29 SECONDS (21-34) 06/04/17 11:45
--- NOTE | 2017-06-10 22:26 | CP.PCM.PN ---
Subjective - Date & Time of Evaluation Date of Evaluation: 06/10/17 Time of Evaluation: 19:40 - Subjective Subjective: Patient seen and evaluated Denies chest pain and dyspnea Comfortable Objective - Vital Signs/Intake and Output Vital Signs (last 24 hours): Temp Pulse Resp BP Pulse Ox 97.9 F 89 20 102/71 99 06/10/17 15:23 06/10/17 15:23 06/10/17 15:23 06/10/17 15:23 06/10/17 15:23 Intake and Output: 06/10/17 06/11/17 18:59 06:59 Intake Total 240 Balance 240 - Medications Medications: Current Medications Albuterol/Ipratropium (Duoneb 3 Mg/0.5 Mg (3 Ml) Ud) 3 ml INH RQ6 [facility] Last Admin: 06/10/17 21:04 Dose: 3 ml Aspirin (Ecotrin) 81 mg PO DAILY [facility] Last Admin: 06/10/17 09:29 Dose: 81 mg Enoxaparin Sodium (Lovenox) 30 mg SC DAILY [facility] Last Admin: 06/07/17 10:55 Dose: Not Given Rosuvastatin Calcium (Crestor) 5 mg PO HS [facility] Last Admin: 06/10/17 21:32 Dose: 5 mg - Labs Labs: 06/07/17 07:20 06/07/17 07:20 PT 11.8 SECONDS (9.7-12.2) 06/04/17 11:45 INR 1.0 06/04/17 11:45 APTT 29 SECONDS (21-34) 06/04/17 11:45
[2017-06-11] MEDS: Albuterol-Ipratrop 3 mg / 0.5 (3 ml) UD INH SCH ×2 (07:55→13:46)
[2017-06-11 12:30] LABS: BASO # 0.1 K/uL (0.0-0.2); BASO % 0.8 % (0.0-2.0); EOS # 0.2 K/uL (0.0-0.7); EOS % 3.6 % (0.0-4.0); HEMATOCRIT 39.1 % (34.0-47.0); LYMPH # 1.5 K/uL (1.0-4.3); LYMPH % 21.1 % (20.0-40.0); MEAN CELL VOLUME 98.5 fL (81.0-99.0); MEAN CORPUSCULAR HEMOGLOBIN 32.4 pg (27.0-31.0); MEAN CORPUSCULAR HGB CONC 32.9 g/dL (33.0-37.0); MEAN PLATELET VOLUME 9.6 fL (7.2-11.7); MONO # 0.7 K/uL (0.0-0.8); MONO % 10.2 % (0.0-10.0); RED CELL DISTRIBUTION WIDTH 15.2 % (11.5-14.5); WHITE BLOOD COUNT 6.9 K/uL (4.8-10.8)
[2017-06-11 12:40] LABS: POTASSIUM 4.8 mmol/L (3.6-5.2)
[2017-06-11 12:43] LABS: CALCIUM 9.8 mg/dl (8.6-10.4)
[2017-06-11 16:26] VITALS: BP 131/81; PULSE 78; RESP 18; TEMP 97.4; O2SAT 100
--- NOTE | 2017-06-11 16:31 | CP.PCM.PN ---
Subjective - Date & Time of Evaluation Date of Evaluation: 06/11/17 Time of Evaluation: 11:00 - Subjective Subjective: Awake, confused, no sob or chest pains, no acute distress. Objective - Vital Signs/Intake and Output Vital Signs (last 24 hours): Temp Pulse Resp BP Pulse Ox 97.4 F L 78 18 131/81 100 06/11/17 15:25 06/11/17 15:25 06/11/17 15:25 06/11/17 15:25 06/11/17 15:25 Intake and Output: 06/11/17 06/11/17 06:59 18:59 Intake Total 240 Balance 240 - Medications Medications: Current Medications Albuterol/Ipratropium (Duoneb 3 Mg/0.5 Mg (3 Ml) Ud) 3 ml INH RQ6 [facility] Last Admin: 06/11/17 13:46 Dose: 3 ml Aspirin (Ecotrin) 81 mg PO DAILY [facility] Last Admin: 06/11/17 09:37 Dose: 81 mg Enoxaparin Sodium (Lovenox) 30 mg SC DAILY [facility] Last Admin: 06/07/17 10:55 Dose: Not Given Rosuvastatin Calcium (Crestor) 5 mg PO HS [facility] Last Admin: 06/10/17 21:32 Dose: 5 mg - Labs Labs: 06/11/17 12:20 06/11/17 12:20 PT 11.8 SECONDS (9.7-12.2) 06/04/17 11:45 INR 1.0 06/04/17 11:45 APTT 29 SECONDS (21-34) 06/04/17 11:45 Assessment and Plan - Assessment and Plan (Free Text) Assessment: Patient is seen and examined. Awake, confused, no sob, no edema or chest pain or distress. Admitted with CHF exacerbation, [facility] for bed at [facility], [facility]W DR Diaz, plan to discharge today with PICC line on right arm. Applied sleeve to prevent pulling on the line.
--- NOTE | 2017-06-13 09:50 | PQF CHF ---
This form is a permanent part of the medical record Dr. Diaz, Please clarify the type and chronicity of the CHF. Also, was the PE ruled in? Clarification of your documentation is requested to better reflect the severity of illness and intensity of treatment of your patient. Indicators present [XX] Diagnosis of CHF and/or history of CHF [x] BNP > 200 [] Imaging Finding of Pulmonary Edema /Pleural Effusions [x] Fluid/Volume Overload [x] Pitting edema [] Ejection Fraction < 40% (Indicative of Systolic Heart Failure) [x] Ejection Fraction > 40% (Indicative of Diastolic Heart Failure) [x] Dyspnea / Orthopenea / Paroxysmal Nocturnal Dyspnea [] Other: Location in the medical record that reflects the above clinical findings: [] Treatment Provided: [] PHYSICIAN'S RESPONSE Based on your medical judgment of the clinical indicators outlined above, are you treating this patient for a known or suspected: [] Acute CHF [] Systolic [] Diastolic [] Combined [] Chronic CHF [] Systolic [x] Diastolic [] Combined [] Acute on Chronic CHF []Systolic [] Diastolic [] Combined [] CHF due hypertension [] Acute systolic []Chronic systolic [] Acute/ chronic systolic [] Other, please indicate: [] [] If Unable to Determine, please check the box, sign and date. Present On Admission (POA) Indicator: [x] Present at the time of admission [] Not present at the time of admission [] Clinically Undetermined In responding to this query, please exercise your independent professional judgment. The fact that a question is asked does not imply that any particular answer is desired or expected. Thank you for your clarification on this documentation. If you have any questions please call:[ ] * Thank you, [ ] electronic device repairer IVANNA
--- NOTE | 2017-06-16 16:22 | CP.PCM.DIS ---
Provider - Provider Date of Admission: 06/04/17 11:57 Attending physician: Estela Diaz MD Time Spent in preparation of Discharge (in minutes): 45 Hospital Course - Lab Results Lab Results: Micro Results 06/03/17 17:15 Blood Blood Culture - Final NO GROWTH AFTER 5 DAYS 06/03/17 17:15 Blood Gram Stain - Final TEST NOT PERFORMED 06/03/17 17:30 Blood Blood Culture - Final NO GROWTH AFTER 5 DAYS 06/03/17 17:30 Blood Gram Stain - Final TEST NOT PERFORMED Most Recent Lab Values WBC 6.9 K/uL (4.8-10.8) 06/11/17 12:20 RBC 3.97 Mil/uL (3.80-5.20) 06/11/17 12:20 Hgb 12.8 g/dL (11.0-16.0) 06/11/17 12:20 Hct 39.1 % (34.0-47.0) 06/11/17 12:20 MCV 98.5 fL (81.0-99.0) 06/11/17 12:20 MCH 32.4 pg (27.0-31.0) H 06/11/17 12:20 MCHC 32.9 g/dL (33.0-37.0) L 06/11/17 12:20 RDW 15.2 % (11.5-14.5) H 06/11/17 12:20 Plt Count 130 K/uL (130-400) 06/11/17 12:20 MPV 9.6 fL (7.2-11.7) 06/11/17 12:20 Neut % (Auto) 64.3 % (50.0-75.0) 06/11/17 12:20 Lymph % (Auto) 21.1 % (20.0-40.0) 06/11/17 12:20 [place] % (Auto) 10.2 % (0.0-10.0) H 06/11/17 12:20 Eos % (Auto) 3.6 % (0.0-4.0) 06/11/17 12:20 Baso % (Auto) 0.8 % (0.0-2.0) 06/11/17 12:20 Neut # 4.4 K/uL (1.8-7.0) 06/11/17 12:20 Lymph # 1.5 K/uL (1.0-4.3) 06/11/17 12:20 [place] # 0.7 K/uL (0.0-0.8) 06/11/17 12:20 Eos # 0.2 K/uL (0.0-0.7) 06/11/17 12:20 Baso # 0.1 K/uL (0.0-0.2) 06/11/17 12:20 Differential Comment 06/07/17 07:20 PT 11.8 SECONDS (9.7-12.2) 06/04/17 11:45 INR 1.0 06/04/17 11:45 APTT 29 SECONDS (21-34) 06/04/17 11:45 D-Dimer, Quantitative 913 ng/mlDDU (0-243) H 06/03/17 17:29 Puncture Site Lradial 06/03/17 20:20 pCO2 39 mm/Hg (35-45) 06/03/17 20:20 pO2 86 mm/Hg (80-100) 06/03/17 20:20 HCO3 25.0 mmol/L (21-28) 06/03/17 20:20 ABG pH 7.41 (7.35-7.45) 06/03/17 20:20 ABG Total CO2 25.9 mmol/L (22-28) 06/03/17 20:20 ABG O2 Saturation 97.9 % (95-98) 06/03/17 20:20 ABG Base Excess 0.1 mmol/L (-2.0-3.0) 06/03/17 20:20 Misael Test Pos 06/03/17 20:20 ABG Potassium 4.4 mmol/L (3.6-5.2) 06/03/17 20:20 A-a O2 Difference 15.0 mm/Hg 06/03/17 20:20 Respiratory Index 0.2 06/03/17 20:20 Sodium 138.0 mmol/l (132-148) 06/03/17 20:20 Chloride 106.0 mmol/L (98-107) 06/03/17 20:20 Glucose 81 mg/dl (65-105) 06/03/17 20:20 Lactate 0.8 mmol/L (0.7-2.1) 06/03/17 20:20 FiO2 21.0 % 06/03/17 20:20 Sodium 140 mmol/L (132-148) 06/11/17 12:20 Potassium 4.8 mmol/L (3.6-5.2) 06/11/17 12:20 Chloride 106 mmol/L (98-107) 06/11/17 12:20 Carbon Dioxide 23 mmol/L (22-30) 06/11/17 12:20 Anion Gap 15 (10-20) 06/11/17 12:20 BUN 40 mg/dL (7-17) H 06/11/17 12:20 Creatinine 1.5 mg/dL (0.7-1.2) H 06/11/17 12:20 Est GFR ( Amer) 40 06/11/17 12:20 Est GFR (Non-Af Amer) 33 06/11/17 12:20 Random Glucose 98 mg/dL (65-105) 06/11/17 12:20 Calcium 9.8 mg/dl (8.6-10.4) 06/11/17 12:20 Total Bilirubin 0.7 mg/dL (0.2-1.3) 06/04/17 11:45 AST 32 U/L (14-36) 06/04/17 11:45 ALT 43 U/L (9-52) 06/04/17 11:45 Alkaline Phosphatase 59 U/L (38-126) 06/04/17 11:45 Troponin I < 0.0120 ng/mL (0.00-0.120) 06/03/17 17:29 NT-Pro-B Natriuret Pep 90.6 pg/mL (0-900) 06/03/17 17:29 Total Protein 7.6 g/dL (6.3-8.3) 06/04/17 11:45 Albumin 4.0 g/dL (3.5-5.0) 06/04/17 11:45 Globulin 3.6 gm/dL (2.2-3.9) 06/04/17 11:45 Albumin/Globulin Ratio 1.1 (1.0-2.1) 06/04/17 11:45 Arterial Blood Potassium 4.4 mmol/L (3.6-5.2) 06/03/17 20:20 Serum Ketones Negative (NEGATIVE) 06/03/17 17:29 - Hospital Course Hospital Course: Shortness of breath History of present illness: 85-year-old female with history of dementia, hypertension, hypercholesterolemia , renal insufficiency and also noted to have pulmonary hypertension came to the emergency room from my office, with increasing symptoms of not feeling well. Patient was recently hospitalized at [facility] with respiratory distress. Patient underwent extensive workup. Patient continued to have symptoms of shortness of breath. According to the family she was not doing well, including poor intake noted, shortness of breath, increasing lethargy noted. Episodes of confusion more noted. Coughing person. Generalized body pain also noted. Past medical history: Dementia, advanced, hypertension or hypercholesterolemia in insufficiency Allergies: No known drug allergies Personal history: Nonsmoker nonalcoholic lives with the family member midline medications: Reviewed Family family history noncontributory Review of system: Patient is not focusing, confused, agitation noted, mumbling. Generalized body pain noted. Upon touching the leg since she's having increasing symptoms of pain. Constipation present Urine output unclear On examination: Vital signs mild tachycardia, hypertension noted. Chest diffuse bilateral wheezing and rales noted. Regular heart sound. Abdomen soft nontender. Extremities bilateral pedal edema noted Labs reviewed Elevated WBC, proBNP noted. Chest x-ray nonspecific Assessment and compression: 85-year-old female with multiple medical history including hypertension hypercholesterolemia renal insufficiency, dementia admitted with worsening shortness of breath. Possible associated decompensated systolic heart failure. Pedal edema chronic venous insufficiency. Advanced dementia, associated delirium. Patient to cardiac status unclear at this time. Will get a cardiology consultation. IV hydration if needed. Will follow the patient Patient was seen by cardiology. Patient is having pulmonary hypertension. Most likely secondary to obstructive sleep apnea. Less likely any cardiac in origin. Patient also has a bilateral pedal edema, improving with Lasix. Advanced dementia noted, and associated with delirium. Discussed with the family. Currently off all anti-anxiolytic, including medications for dementia. Procedure monitor the patient. Patient will be discharged to rehabilitation. Final diagnosis: Fluid overload, anasarca. Likely diastolic heart failure. Chronic pulmonary hypertension. Dementia, with the delirium. Hypertension. Poor intake. Discharge Exam - Head Exam Head Exam: ATRAUMATIC, NORMAL INSPECTION, NORMOCEPHALIC Discharge Plan - Follow Up Plan Condition: GUARDED Disposition: TRANSF TO SNF Instructions: Heart Failure (DC), Complete Blenderized Diet (DC) Additional Instructions: PLACE UNDER THE SERVICE DR. DIAZ WHILE AT REHAB---CALL WITH BED ASSIGNMENT AND FOR ADMITTING ORDERS. CONTINUE MEDICATIONS PER THE MED REC FORM. ANY CHANGES TO MEDICATIONS PER DR. DIAZ. FALL PRECAUTIONS MRS. BERMEO HAS DEMENTIA. PHYSICAL THERAPY TOLERATED ONCE TO TWICE A DAY. PLEASE HAVE EVALUATED BY SPEECH THERAPIST AT FACILITY PER FAMILY REQUEST. FOR FURTHER ORDERS CONTACT DR. DIAZ'S OFFICE. Referrals: Ivan Yanes MD [Staff Provider] - Estela Diaz MD [Staff Provider] -
--- NOTE | 2017-06-16 16:23 | CP.PCM.PN ---
Subjective - Date & Time of Evaluation Date of Evaluation: 06/09/17 Time of Evaluation: 16:23 - Subjective Subjective: He is not in any distress. Slightly more awake than yesterday. Able to comminuted. But her voice is very mumbling. Family of bedside. Spoke to the family. Currently having advanced dementia, and associated delirium. Continue the IV medications. We'll hold off antianxiety medications for now. DVT GI prophylaxis Objective - Vital Signs/Intake and Output Vital Signs (last 24 hours): Temp Pulse Resp BP Pulse Ox 97.4 F L 78 18 131/81 100 06/11/17 15:25 06/11/17 15:25 06/11/17 15:25 06/11/17 15:25 06/11/17 15:25 - Labs Labs: 06/11/17 12:20 06/11/17 12:20 PT 11.8 SECONDS (9.7-12.2) 06/04/17 11:45 INR 1.0 06/04/17 11:45 APTT 29 SECONDS (21-34) 06/04/17 11:45
--- NOTE | 2017-06-16 16:23 | CP.PCM.PN ---
Subjective - Date & Time of Evaluation Date of Evaluation: 06/08/17 Time of Evaluation: 16:23 - Subjective Subjective: Is awake and responding. But more drowsy than yesterday. I spoke to the family. Will discontinue all the anxiolytics at this time. Discussed with cardiology. VQ scan ordered. Less likely patient had supple embolism. Continue the Lasix, antihypertensives as needed. DVT GI prophylaxis Objective - Vital Signs/Intake and Output Vital Signs (last 24 hours): Temp Pulse Resp BP Pulse Ox 97.4 F L 78 18 131/81 100 06/11/17 15:25 06/11/17 15:25 06/11/17 15:25 06/11/17 15:25 06/11/17 15:25 - Labs Labs: 06/11/17 12:20 06/11/17 12:20 PT 11.8 SECONDS (9.7-12.2) 06/04/17 11:45 INR 1.0 06/04/17 11:45 APTT 29 SECONDS (21-34) 06/04/17 11:45
--- NOTE | 2017-06-16 16:23 | CP.PCM.PN ---
Subjective - Date & Time of Evaluation Date of Evaluation: 06/07/17 Time of Evaluation: 16:23 - Subjective Subjective: He is not in any distress. Slightly more awake than yesterday. Able to comminuted. But her voice is very mumbling. Family of bedside. Spoke to the family. Currently having advanced dementia, and associated delirium. Continue the IV medications. We'll hold off antianxiety medications for now. DVT GI prophylaxis Objective - Vital Signs/Intake and Output Vital Signs (last 24 hours): Temp Pulse Resp BP Pulse Ox 97.4 F L 78 18 131/81 100 06/11/17 15:25 06/11/17 15:25 06/11/17 15:25 06/11/17 15:25 06/11/17 15:25 - Labs Labs: 06/11/17 12:20 06/11/17 12:20 PT 11.8 SECONDS (9.7-12.2) 06/04/17 11:45 INR 1.0 06/04/17 11:45 APTT 29 SECONDS (21-34) 06/04/17 11:45
== END 2017-06-11 17:50 | DRG 292 ==
LOC: C.ER 16:28 → C.9E 17:45 → C.6T 18:32 → OBSVTOIN 06-04 11:57
PROVIDERS: ADMIT Internal Medicine; ATTEND Internal Medicine
PROC: 02HV33Z Insertion of Infusion Device into Superior Vena Cava, Percutaneous Approach (ICD-10-PCS; principal; 2017-06-04)
PROC: B548ZZA Ultrasonography of Superior Vena Cava, Guidance (ICD-10-PCS; 2017-06-04)
DX: I13.0 Hypertensive heart and chronic kidney disease with heart failure and stage 1 through stage 4 chronic kidney disease, or unspecified chronic kidney disease (principal); I50.32 Chronic diastolic (congestive) heart failure; J44.9 Chronic obstructive pulmonary disease, unspecified; G30.9 Alzheimer's disease, unspecified; F05 Delirium due to known physiological condition; F02.80 Dementia in other diseases classified elsewhere, unspecified severity, without behavioral disturbance, psychotic disturbance, mood disturbance, and anxiety; E78.00 Pure hypercholesterolemia, unspecified; Z79.899 Other long term (current) drug therapy; N18.9 Chronic kidney disease, unspecified; Z85.038 Personal history of other malignant neoplasm of large intestine; Z87.891 Personal history of nicotine dependence; I27.20 Pulmonary hypertension, unspecified; K59.00 Constipation, unspecified; M17.0 Bilateral primary osteoarthritis of knee; G47.33 Obstructive sleep apnea (adult) (pediatric)

== ENCOUNTER 2017-06-15 17:58 | Inpatient (IN) | payer MEDICARE ==
[2017-06-15 18:07] VITALS: BMI 32.5
[2017-06-15 19:08] LABS: GRANULAR CAST 59 /lpf (0-1); RBC URINE < 1 /hpf (0-3); URINE BACTERIA RARE (<OCC); URINE BILIRUBIN NEGATIVE (NEGATIVE); URINE BLOOD NEGATIVE (NEGATIVE); URINE COLOR Yellow (YELLOW); URINE GLUCOSE (UA) NORMAL (Normal); URINE KETONE NEGATIVE (NEGATIVE); URINE LEUKOCYTE ESTERASE NEG Leu/uL (Negative); URINE PROTEIN NEGATIVE (NEGATIVE); URINE UROBILINOGEN NORMAL mg/dL (0.2-1.0); WBC URINE 1 /hpf (0-5)
[2017-06-15 19:40] LABS: CHLORIDE 109 mmol/L (98-107)
[2017-06-15 19:41] LABS: POTASSIUM 4.5 mmol/L (3.6-5.2); SODIUM 146 mmol/L (132-148)
[2017-06-15 19:43] LABS: ALB/GLOB RATIO 0.9 (1.0-2.1); ALKALINE PHOSPHATASE 75 U/L (38-126); AST/SGOT 21 U/L (14-36); BILIRUBIN,TOTAL 0.6 mg/dL (0.2-1.3); BLOOD UREA NITROGEN 81 mg/dL (7-17); CARBON DIOXIDE 24 mmol/L (22-30); GFR AFRICAN-AMERICAN 19; TOTAL PROTEIN 8.4 g/dL (6.3-8.3)
[2017-06-15 19:44] LABS: ALT/SGPT 32 U/L (9-52); CALCIUM 10.2 mg/dl (8.6-10.4); GLUCOSE,RANDOM 112 mg/dL (65-105)
[2017-06-15 20:05] LABS: BASO # 0.1 K/uL (0.0-0.2); BASO % 1.1 % (0.0-2.0); EOS # 0.2 K/uL (0.0-0.7); EOS % 1.9 % (0.0-4.0); HEMATOCRIT 39.9 % (34.0-47.0); LYMPH # 1.4 K/uL (1.0-4.3); LYMPH % 17.3 % (20.0-40.0); MEAN CELL VOLUME 98.7 fL (81.0-99.0); MEAN CORPUSCULAR HEMOGLOBIN 32.2 pg (27.0-31.0); MEAN CORPUSCULAR HGB CONC 32.6 g/dL (33.0-37.0); MONO # 0.6 K/uL (0.0-0.8); MONO % 7.4 % (0.0-10.0); NRBC % 0.2 % (0.0-2.0); WHITE BLOOD COUNT 8.2 K/uL (4.8-10.8)
[2017-06-15] MEDS ORDERED: Sodium Chloride 0.9% 1,000 ML IV SCH ×2 (20:15→21:15)
[2017-06-15] MEDS ORDERED: Albuterol-Ipratrop 3 mg / 0.5 (3 ml) UD INH PRN (21:08)
--- NOTE | 2017-06-15 21:15 | C.PDOC ---
History Of Present Illness 86 y/o female brought in from her group home for abnormal blood labs that were drawn today. Patient has no somatic complaints. Family is at bedside and notes baseline dementia with decreased PO intake for the last couple of days. Time Seen by Provider: 06/15/17 18:10 Chief Complaint (Nursing): Abnormal Labs History Per: Patient History/Exam Limitations: no limitations Onset/Duration Of Symptoms: Hrs Current Symptoms Are (Timing): Still Present Severity: Mild Recent travel outside of the [place]: No Additional History Per: Patient Past Medical History Reviewed: Historical Data, Nursing Documentation, Vital Signs Vital Signs: Last Vital Signs Temp 97.8 F 06/15/17 21:30 Pulse 69 06/15/17 21:30 Resp 20 06/15/17 21:30 BP 119/74 06/15/17 21:30 Pulse Ox 99 06/15/17 21:30 - Medical History PMH: Alzheimer's Disease, Arthritis (bilateral knee pain), Bronchitis, COPD, Dementia, HTN, Hypercholesterolemia, Chronic Kidney Disease - [facility] Procedures INSERT OF MONITOR DEV INTO CHEST SUBCU/FASCIA, OPEN APPROACH (10/04/16) INSERTION OF INFUSION DEV INTO SUP VENA CAVA, PERC APPROACH (06/04/17) ULTRASONOGRAPHY OF SUPERIOR VENA CAVA, GUIDANCE (06/04/17) Family History: States: Unknown Family Hx - Social History Hx Tobacco Use: No Hx Alcohol Use: No Hx Substance Use: No - Immunization History Hx Tetanus Toxoid Vaccination: No Hx Influenza Vaccination: No Hx Pneumococcal Vaccination: No Review Of Systems Except As Marked, All Systems Reviewed And Found Negative. Constitutional: Positive for: Other (Decreases PO intake) Neurological: Positive for: Other (Baseline demetia) Physical Exam - Physical Exam Appears: Non-toxic, No Acute Distress Skin: Warm, Dry Head: Atraumatic, Normacephalic Oral Mucosa: Dry Cardiovascular: Rhythm Regular, No Murmur Respiratory: Normal Breath Sounds, No Rales, No Rhonchi, No Wheezing Gastrointestinal/Abdominal: Soft, No Tenderness Neurological/Psych: Other (Baseline demetia) ED Course And Treatment - Laboratory Results Result Diagrams: 06/15/17 20:00 06/15/17 19:28 ECG: Interpreted By Me, Viewed By Me ECG Rhythm: Sinus Rhythm Interpretation Of ECG: Left axis deviation Rate From EC O2 Sat by Pulse Oximetry: 99 (RA) Pulse Ox Interpretation: Normal Medical Decision Making Medical Decision Making: Impression: * abnormal blood labs that were drawn today. Plans: * EKG * CXR * Tylenol * Duoneb * Heparin * Crestor * IV fluids Spoke to Dr. Diaz and is aware of the case, who sent the patient to the ER. Will admit to medical floor. Disposition - Disposition Disposition: HOSPITALIZED Disposition Time: 20:10 Condition: STABLE - Clinical Impression Clinical Impression: Renal insufficiency, Dementia - Scribe Statement The provider has reviewed the documentation as recorded by the Scribdiane coker All medical record entries made by the Yoandyibdiane were at my direction and personally dictated by me. I have reviewed the chart and agree that the record accurately reflects my personal performance of the history, physical exam, medical decision making, and the department course for this patient. I have also personally directed, reviewed, and agree with the discharge instructions and disposition.
--- NOTE | 2017-06-15 21:19 | CP.PCM.HP ---
History of Present Illness - History of Present Illness History of Present Illness: Chief complaint: Weakness and low blood pressure History of present illness: 86-year-old female with a history of dementia, hypertension, hypercholesterolemia syndrome group home with the low blood pressure. I went to see the patient in the group home, at that time patient was more lethargic. Family was very concerned. She was not eating well. Since the hospitalization at the group home patient was not eating well, her intake is only 10-15%. She was not drinking enough fluid. Because of the low blood pressure all the medication was held the day before. IV fluid was given. Lab was done in the group home, showing worsening creatinine level noted, and I advised the nursing team to send the patient to the emergency room. Past medical history: Hypertension, recent hospitalization with increasing lethargic. Dementia, delirium. Pedal edema. Pulmonary hypertension. Allergies: No known drug allergy Personal history nonsmoker nonalcoholic lives with the family Past medical history noted in the chart. Family history noncontributory, significant hypertension and obesity noted Review of systems: Patient is awake, but lethargic. Weakness noted. Sleepiness noted. Edema in the legs 1+ noted. Leg swelling also present. Poor intake On examination: Awake and responding, but confused. Chest bilateral diffuse rhonchi and wheezing noted irregular heart sound. Abdomen nontender. Edema 1+ bilaterally noted Labs reviewed Creatinine is at 2.8, patient earlier had a creatinine of 3.5, sodium is 150. Chest x-ray nonspecific Assessment and recommended; 86-year-old female with a history of hypertension hypercholesterolemia dementia , admitted with the occlusion of insufficiency and dehydration. Most likely patient is not eating by mouth. Poor intake noted. Dehydration likely secondary to poor intake and oral feeding. Discussed with family. Will encourage her feeding. Physical therapy. Diet and exercise. Will hold off all medications which is causing her drowsiness. Hold of the antihypertensives. Will follow the patient Present on Admission - Present on Admission Any Indicators Present on Admission: No History of DVT/PE: No History of Uncontrolled Diabetes: No Urinary Catheter: No Decubitus Ulcer Present: No Past Patient History - Past Medical History & Family History Past Medical History?: Yes - Past Social History Smoking Status: Former Smoker - CARDIAC Hx Hypercholesterolemia: Yes Hx Hypertension: Yes - PULMONARY Hx Bronchitis: Yes Hx Chronic Obstructive Pulmonary Disease (COPD): Yes - NEUROLOGICAL Hx Alzheimer's Disease: Yes Hx Dementia: Yes - HEENT Other/Comment: uses eyeglases - RENAL Hx Chronic Kidney Disease: Yes - ENDOCRINE/METABOLIC Hx Endocrine Disorders: No - HEMATOLOGICAL/ONCOLOGICAL Hx Blood Disorders: No - INTEGUMENTARY Hx Dermatological Problems: No - MUSCULOSKELETAL/RHEUMATOLOGICAL Hx Arthritis: Yes (bilateral knee pain) - GASTROINTESTINAL Hx Gastrointestinal Disorders: No - GENITOURINARY/GYNECOLOGICAL Hx Genitourinary Disorders: No - PSYCHIATRIC Hx Substance Use: No - SURGICAL HISTORY Hx Surgeries: Yes Hx Cataract Extraction: Yes Hx Hysterectomy: Yes Other/Comment: colectomy 2004, colon ca. loop recorder on left chest area - ANESTHESIA Hx Anesthesia: Yes Hx Anesthesia Reactions: No Hx Malignant Hyperthermia: No Meds Allergies/Adverse Reactions: Allergies Allergy/AdvReac Type Severity Reaction Status Date / Time No Known Allergies Allergy Verified 06/15/17 18:06 Results - Vital Signs Recent Vital Signs: Last Vital Signs Temp 98.4 F 06/15/17 20:43 Pulse 77 06/15/17 20:43 Resp 20 06/15/17 20:43 BP 175/76 H 06/15/17 20:43 Pulse Ox 99 06/15/17 21:17 - Labs Result Diagrams: 06/15/17 20:00 06/16/17 11:11 Labs: Laboratory Results - last 24 hr 06/15/17 06/15/17 06/15/17 18:37 19:00 19:28 WBC RBC Hgb Hct MCV MCH MCHC RDW Plt Count MPV Neut % (Auto) Lymph % (Auto) [place] % (Auto) Eos % (Auto) Baso % (Auto) Neut # Lymph # [place] # Eos # Baso # Sodium 146 Potassium 4.5 Chloride 109 H Carbon Dioxide 24 Anion Gap 18 BUN 81 H Creatinine 2.8 H Est GFR ( Amer) 19 Est GFR (Non-Af Amer) 16 POC Glucose (mg/dL) 122 H Random Glucose 112 H Calcium 10.2 Total Bilirubin 0.6 AST 21 ALT 32 Alkaline Phosphatase 75 Troponin I < 0.0120 NT-Pro-B Natriuret Pep 284 Total Protein 8.4 H Albumin 4.0 Globulin 4.4 H Albumin/Globulin Ratio 0.9 L Urine Color Yellow Urine Clarity Clear Urine pH 5.0 Ur Specific [place] 1.017 Urine Protein Negative Urine Glucose (UA) Normal Urine Ketones Negative Urine Blood Negative Urine Nitrate Negative Urine Bilirubin Negative Urine Urobilinogen Normal Ur Leukocyte Esterase Neg Urine WBC (Auto) 1 Urine RBC (Auto) < 1 Urine Bacteria Rare Hyaline Casts 3-5 H Granular Casts (Auto) 59 06/15/17 20:00 WBC 8.2 RBC 4.05 Hgb 13.0 Hct 39.9 MCV 98.7 MCH 32.2 H MCHC 32.6 L RDW 15.0 H Plt Count 163 MPV 10.0 Neut % (Auto) 72.3 Lymph % (Auto) 17.3 L [place] % (Auto) 7.4 Eos % (Auto) 1.9 Baso % (Auto) 1.1 Neut # 6.0 Lymph # 1.4 [place] # 0.6 Eos # 0.2 Baso # 0.1 Sodium Potassium Chloride Carbon Dioxide Anion Gap BUN Creatinine Est GFR ( Amer) Est GFR (Non-Af Amer) POC Glucose (mg/dL) Random Glucose Calcium Total Bilirubin AST ALT Alkaline Phosphatase Troponin I NT-Pro-B Natriuret Pep Total Protein Albumin Globulin Albumin/Globulin Ratio Urine Color Urine Clarity Urine pH Ur Specific [place] Urine Protein Urine Glucose (UA) Urine Ketones Urine Blood Urine Nitrate Urine Bilirubin Urine Urobilinogen Ur Leukocyte Esterase Urine WBC (Auto) Urine RBC (Auto) Urine Bacteria Hyaline Casts Granular Casts (Auto)
[2017-06-15] MEDS: Sodium Chloride 0.9% 1,000 ML IV SCH (23:45)
--- NOTE | 2017-06-16 08:25 | RAD ---
HISTORY: r/o infiltrate COMPARISON: 06/03/2017. FINDINGS: LUNGS: There are low lung volumes. No focal consolidation. PLEURA: No significant pleural effusion identified, no pneumothorax apparent. CARDIOVASCULAR: The heart is normal in size. Atherosclerotic aortic arch calcifications are present. OSSEOUS STRUCTURES: No significant abnormalities. VISUALIZED UPPER ABDOMEN: Normal. OTHER FINDINGS: None. IMPRESSION: No acute findings.
[2017-06-16] MEDS: Sodium Chloride 0.9% 1,000 ML IV SCH ×2 (09:11→13:50)
[2017-06-16 11:43] LABS: POTASSIUM 4.4 mmol/L (3.6-5.2)
[2017-06-16 11:45] LABS: BILIRUBIN,TOTAL 0.6 mg/dL (0.2-1.3); TOTAL PROTEIN 6.7 g/dL (6.3-8.3)
[2017-06-16] MEDS: Petrolatum Oint Foilpak (5 gm) TOP SCH ×2 (16:59→20:30)
--- NOTE | 2017-06-16 21:53 | CP.PCM.PN ---
Subjective - Date & Time of Evaluation Date of Evaluation: 06/16/17 Time of Evaluation: 21:52 - Subjective Subjective: This is somewhat more awake. Today she had better than yesterday. Family at bedside. Mild respiratory distress noted. On examination: Vital signs stable. Chest good air entry bilaterally regular or so nontender abdomen no pedal edema Labs reviewed Improvement in the creatinine level noted Assessment and recommended compression: 86-year-old female with dementia hypertension and renal insufficiency pulmonary hypertension admitted with acute renal insufficiency. Improving at this time. We will continue to monitor. Discontinue IV fluid. Monitor the H&H, also monitor the creatinine level Objective - Vital Signs/Intake and Output Vital Signs (last 24 hours): Temp Pulse Resp BP Pulse Ox 97.3 F L 78 20 137/64 100 06/16/17 15:00 06/16/17 15:00 06/16/17 15:00 06/16/17 15:00 06/16/17 15:00 Intake and Output: 06/16/17 06/17/17 18:59 06:59 Intake Total 600 Balance 600 - Medications Medications: Current Medications Acetaminophen (Tylenol 325mg Tab) 650 mg PO Q4H PRN PRN Reason: Temperature Albuterol/Ipratropium (Duoneb 3 Mg/0.5 Mg (3 Ml) Ud) 3 ml INH RQ6 PRN PRN Reason: Shortness of Breath Emollient Ointment (Vaseline Oint) 5 gm TOP Q4 [facility] Last Admin: 06/16/17 16:59 Dose: 5 gm Heparin Sodium (Porcine) (Heparin) 5,000 units SC Q12 PJ Last Admin: 06/16/17 09:10 Dose: 5,000 units Rosuvastatin Calcium (Crestor) 5 mg PO HS [facility] Last Admin: 06/15/17 22:07 Dose: 5 mg - Labs Labs: 06/15/17 20:00 06/16/17 11:11
[2017-06-17] MEDS: Petrolatum Oint Foilpak (5 gm) TOP SCH ×6 (00:15→20:00)
[2017-06-17 06:53] LABS: EOS % 4.4 % (0.0-4.0); HEMATOCRIT 39.2 % (34.0-47.0); LYMPH % 22.4 % (20.0-40.0); MEAN CELL VOLUME 98.2 fL (81.0-99.0); MEAN CORPUSCULAR HEMOGLOBIN 32.6 pg (27.0-31.0); MEAN CORPUSCULAR HGB CONC 33.2 g/dL (33.0-37.0); MEAN PLATELET VOLUME 10.9 fL (7.2-11.7); MONO % 9.4 % (0.0-10.0); NRBC % 1.4 % (0.0-2.0); PLATELET COUNT 123 K/uL (130-400); RED CELL DISTRIBUTION WIDTH 15.1 % (11.5-14.5); WHITE BLOOD COUNT 8.8 K/uL (4.8-10.8)
[2017-06-17 07:19] LABS: POTASSIUM 4.8 mmol/L (3.6-5.2)
[2017-06-17 07:21] LABS: BILIRUBIN,TOTAL 0.7 mg/dL (0.2-1.3); TOTAL PROTEIN 6.9 g/dL (6.3-8.3)
[2017-06-17 07:22] LABS: CALCIUM 9.2 mg/dl (8.6-10.4)
--- NOTE | 2017-06-17 18:43 | CARD ---
APPROVED REPORT EKG Measurement Heart [id number] 120P [id number] <Conclusion> Sinus rhythm with premature atrial complexes Left axis deviation Minimal voltage criteria for LVH, may be normal variant Abnormal ECG
[2017-06-17] MEDS ORDERED: Sodium Chloride 0.45% 1,000 ML IV SCH (21:00)
--- NOTE | 2017-06-17 21:03 | CP.PCM.PN ---
Subjective - Date & Time of Evaluation Date of Evaluation: 06/17/17 Time of Evaluation: 21:00 - Subjective Subjective: pt is eating very poorly and she is masticating for long time and poorly drinking liquids and developing dehydration easily spoke to family and agreed for peg will get GI eval pt is confused agitation pulling thing out Temp Pulse Resp BP Pulse Ox 98.3 F 53 L 20 100/55 L 97 06/17/17 15:00 06/17/17 15:00 06/17/17 15:00 06/17/17 15:00 06/17/17 07:46 chest good air entry regular hs abd soft low BP noted edema noted labs 06/17/17 06:07 06/17/17 06:07 a/p: pt with pulmonary HTN HTN diastolic chf severe dehydration with renal failure continue IVF will get GI eval for peg discussed with son Nic Ngo agrees for the plan will f/u Objective - Vital Signs/Intake and Output Vital Signs (last 24 hours): Temp Pulse Resp BP Pulse Ox 98.3 F 53 L 20 100/55 L 97 06/17/17 15:00 06/17/17 15:00 06/17/17 15:00 06/17/17 15:00 06/17/17 07:46 - Medications Medications: Current Medications Acetaminophen (Tylenol 325mg Tab) 650 mg PO Q4H PRN PRN Reason: Temperature Albuterol/Ipratropium (Duoneb 3 Mg/0.5 Mg (3 Ml) Ud) 3 ml INH RQ6 PRN PRN Reason: Shortness of Breath Last Admin: 06/17/17 19:57 Dose: 3 ml Emollient Ointment (Vaseline Oint) 5 gm TOP Q4 PJ Last Admin: 06/17/17 11:43 Dose: 5 gm Heparin Sodium (Porcine) (Heparin) 5,000 units SC Q12 PJ Last Admin: 06/17/17 09:15 Dose: 5,000 units Sodium Chloride (Sodium Chloride 0.45%) 1,000 mls @ 50 mls/hr IV .Q20H PJ Stop: 06/18/17 16:59 Rosuvastatin Calcium (Crestor) 5 mg PO HS PJ Last Admin: 06/16/17 22:08 Dose: 5 mg - Labs Labs: 06/17/17 06:07 06/17/17 06:07
[2017-06-17] MEDS: Sodium Chloride 0.9% 1,000 ML IV SCH (21:36)
[2017-06-18] MEDS: Petrolatum Oint Foilpak (5 gm) TOP SCH ×7 (06:05→23:43)
[2017-06-18 08:49] LABS: HEMATOCRIT 40.8 % (34.0-47.0); MEAN CELL VOLUME 98.6 fL (81.0-99.0); MEAN CORPUSCULAR HGB CONC 32.5 g/dL (33.0-37.0); MEAN PLATELET VOLUME 10.2 fL (7.2-11.7); WHITE BLOOD COUNT 8.2 K/uL (4.8-10.8)
[2017-06-18 08:59] LABS: INR 1.1
[2017-06-18 09:07] LABS: POTASSIUM 4.9 mmol/L (3.6-5.2)
[2017-06-18 09:09] LABS: BILIRUBIN,TOTAL 0.8 mg/dL (0.2-1.3)
[2017-06-18 09:10] LABS: CALCIUM 9.4 mg/dl (8.6-10.4); TOTAL PROTEIN 7.2 g/dL (6.3-8.3)
[2017-06-18] MEDS ORDERED: Pneumococcal 23-Valent Vaccine IM ONE (10:00)
[2017-06-18] MEDS ORDERED: Influenza Vaccine 60 mcg/0.5 mL SYR (4YR UP) IM ONE (10:00)
--- NOTE | 2017-06-18 11:07 | CP.PCM.CON ---
<Lily Arguello - Last Filed: 06/18/17 13:40> History of Present Illness - History of Present Illness History of Present Illness: GI Fellow PGY4 Consult Note This is a 86-year-old female with a history of dementia, hypertension, hypercholesterolemia [facility] blood pressure and WHIT. Pt has dementia and is lethargic so most of the history was gathered from EMR and nursing staff. In the [facility] pt was progressively getting lethargic and was not eating well, it was reported that her intake was only 10-15%. Pt was found to have low pressure and her medications were held and labs revealed a worsening creatinine so was sent to ER. Pt was also reported to not have been drinking enough water. During the hospital stay, per nursing very poor po intake and when she does try to eat she masticates for a very long time before swallowing. GI was consulted for possible PEG. ROS: Unable to be obtained 2/2 AMS Pmhx: As stated in HPI PsHx: Unable to be obtained 2/2 AMS SHx: No hx of etoh, smoking, drugs FH: Unable to be obtained 2/2 AMS Past Patient History - Past Medical History & Family History Past Medical History?: Yes - Past Social History Smoking Status: Former Smoker - CARDIAC Hx Hypercholesterolemia: Yes Hx Hypertension: Yes - PULMONARY Hx Chronic Obstructive Pulmonary Disease (COPD): Yes - NEUROLOGICAL Hx Alzheimer's Disease: Yes Hx Dementia: Yes - HEENT Other/Comment: uses eyeglases - RENAL Hx Chronic Kidney Disease: Yes - ENDOCRINE/METABOLIC Hx Endocrine Disorders: No - HEMATOLOGICAL/ONCOLOGICAL Hx Blood Disorders: No - INTEGUMENTARY Hx Dermatological Problems: No - MUSCULOSKELETAL/RHEUMATOLOGICAL Hx Arthritis: Yes (bilateral knee pain) - GASTROINTESTINAL Hx Gastrointestinal Disorders: No - GENITOURINARY/GYNECOLOGICAL Hx Genitourinary Disorders: No - PSYCHIATRIC Hx Substance Use: No - SURGICAL HISTORY Hx Surgeries: Yes Hx Cataract Extraction: Yes Hx Hysterectomy: Yes Other/Comment: colectomy 2004, colon ca. loop recorder on left chest area - ANESTHESIA Hx Anesthesia: Yes Hx Anesthesia Reactions: No Hx Malignant Hyperthermia: No Meds Allergies/Adverse Reactions: Allergies Allergy/AdvReac Type Severity Reaction Status Date / Time No Known Allergies Allergy Verified 06/15/17 18:06 - Medications Medications: Current Medications Acetaminophen (Tylenol 325mg Tab) 650 mg PO Q4H PRN PRN Reason: Temperature Albuterol/Ipratropium (Duoneb 3 Mg/0.5 Mg (3 Ml) Ud) 3 ml INH RQ6 PRN PRN Reason: Shortness of Breath Last Admin: 06/17/17 19:57 Dose: 3 ml Emollient Ointment (Vaseline Oint) 5 gm TOP Q4 [facility] Last Admin: 06/18/17 08:19 Dose: 5 gm Heparin Sodium (Porcine) (Heparin) 5,000 units SC Q12 [facility] Last Admin: 06/18/17 10:18 Dose: 5,000 units Sodium Chloride (Sodium Chloride 0.9%) 1,000 mls @ 60 mls/hr IV .[id number] [facility] Last Admin: 06/17/17 21:36 Dose: 60 mls/hr Rosuvastatin Calcium (Crestor) 5 mg PO HS [facility] Last Admin: 06/17/17 21:34 Dose: 5 mg Physical Exam - Constitutional Appears: Confused Additional comments: awake but lethargic, mumbles, not following commands, hand mittens - Head Exam Head Exam: ATRAUMATIC, NORMAL INSPECTION, NORMOCEPHALIC - Eye Exam Additional comments: eyes closed, not opening - ENT Exam ENT Exam: Mucous Membranes Dry - Neck Exam Neck exam: Positive for: Normal Inspection - Respiratory Exam Respiratory Exam: Decreased Breath Sounds, NORMAL BREATHING PATTERN - Cardiovascular Exam Cardiovascular Exam: RRR, +S1, +S2 - GI/Abdominal Exam GI & Abdominal Exam: Normal Bowel Sounds, Soft. absent: Distended, Organomegaly , Tenderness - Rectal Exam Rectal Exam: Deferred - Extremities Exam Extremities exam: Positive for: normal inspection. Negative for: pedal edema - Neurological Exam Additional comments: awake but lethargic, mumbles, not following commands, hand mittens - Skin Skin Exam: Dry, Intact, Normal Color, Warm Results - Vital Signs Recent Vital Signs: Last Vital Signs Temp 98.1 F 06/18/17 08:00 Pulse 70 06/18/17 08:00 Resp 20 06/18/17 08:00 BP 128/73 06/18/17 08:00 Pulse Ox 95 06/18/17 08:00 - Labs Result Diagrams: 06/18/17 08:36 06/18/17 08:36 Labs: Laboratory Results - last 24 hr 06/18/17 06/18/17 06/18/17 08:36 08:36 08:36 WBC 8.2 RBC 4.14 Hgb 13.3 Hct 40.8 MCV 98.6 MCH 32.0 H MCHC 32.5 L RDW 15.0 H Plt Count 171 MPV 10.2 PT 12.4 H INR 1.1 APTT 30 Sodium 147 Potassium 4.9 Chloride 113 H Carbon Dioxide 23 Anion Gap 15 BUN 29 H Creatinine 1.5 H Est GFR ( Amer) 40 Est GFR (Non-Af Amer) 33 Random Glucose 106 H Calcium 9.4 Total Bilirubin 0.8 AST 42 H ALT 32 Alkaline Phosphatase 71 Total Protein 7.2 Albumin 3.6 Globulin 3.6 Albumin/Globulin Ratio 1.0 Assessment & Plan - Assessment and Plan (Free Text) Assessment: This is a 86yF sent from [facility] for hypotesion and WHIT. 1. Malnutrition 2. Lethargy 3. WHIT 4. Dementia Plan: -Continue supportive care with IVF hydration -Cr improved to baseline, WHIT likely prerenal from poor po intake -Lethargy maybe multifactorial from dementia, polypharmacy and poor po intake -Poor po intake with 10-15% reported by nursing staff -PEG tube discussed with pt's son/POA over the phone who agrees to possible PEG , son will like to discuss further details later today -Will continue to follow closely with plan for possible PEG this week <Chava Fu - Last Filed: 06/18/17 13:47> Meds - Medications Medications: Current Medications Acetaminophen (Tylenol 325mg Tab) 650 mg PO Q4H PRN PRN Reason: Temperature Albuterol/Ipratropium (Duoneb 3 Mg/0.5 Mg (3 Ml) Ud) 3 ml INH RQ6 PRN PRN Reason: Shortness of Breath Last Admin: 06/17/17 19:57 Dose: 3 ml Emollient Ointment (Vaseline Oint) 5 gm TOP Q4 PJ Last Admin: 06/18/17 12:35 Dose: 5 gm Heparin Sodium (Porcine) (Heparin) 5,000 units SC Q12 PJ Last Admin: 06/18/17 10:18 Dose: 5,000 units Sodium Chloride (Sodium Chloride 0.9%) 1,000 mls @ 60 mls/hr IV .[id number] [facility] Last Admin: 06/17/17 21:36 Dose: 60 mls/hr Rosuvastatin Calcium (Crestor) 5 mg PO HS PJ Last Admin: 06/17/17 21:34 Dose: 5 mg Results - Vital Signs Recent Vital Signs: Last Vital Signs Temp 98.1 F 06/18/17 08:00 Pulse 70 06/18/17 08:00 Resp 20 06/18/17 08:00 BP 128/73 06/18/17 08:00 Pulse Ox 95 06/18/17 08:00 - Labs Result Diagrams: 06/18/17 08:36 06/18/17 08:36 Labs: Laboratory Results - last 24 hr 06/18/17 06/18/17 06/18/17 08:36 08:36 08:36 WBC 8.2 RBC 4.14 Hgb 13.3 Hct 40.8 MCV 98.6 MCH 32.0 H MCHC 32.5 L RDW 15.0 H Plt Count 171 MPV 10.2 PT 12.4 H INR 1.1 APTT 30 Sodium 147 Potassium 4.9 Chloride 113 H Carbon Dioxide 23 Anion Gap 15 BUN 29 H Creatinine 1.5 H Est GFR ( Amer) 40 Est GFR (Non-Af Amer) 33 Random Glucose 106 H Calcium 9.4 Total Bilirubin 0.8 AST 42 H ALT 32 Alkaline Phosphatase 71 Total Protein 7.2 Albumin 3.6 Globulin 3.6 Albumin/Globulin Ratio 1.0 Attending/Attestation - Attestation I have personally seen and examined this patient.: Yes I have fully participated in the care of the patient.: Yes I have reviewed all pertinent clinical information: Yes Notes (Text): 06/18/17 13:45 86 year old female with h/o advanced dementia, [facility] resident admitted with hypotension/WHIT due to dehydration from lack of oral intake. 1. Failure to thrive 2. Dementia Plan: -patient not eating hardly at all, only 10-15% of meals -discussed the situation with the family at bedside and they would like to have a feeding tube placed for nutrition -discussed the risks including bleeding ,perforation, infection, and peritonitis -discussed that she does pull at things and an abdominal binder or mitten restraints should be used to prevent the patient from pulling at tube after placement -will put peg on for tomorrow
--- NOTE | 2017-06-18 12:46 | CP.PCM.CON ---
History of Present Illness - History of Present Illness History of Present Illness: palliative consult Requested by Brayden PEREZ Reason: Goals of care discussion Patient is a 86 yo female admitted from [place] with abnormal labs, poor PO intake and lethargy. Patient continued with poor PO intake and is at risk for dehydration. The PEG tube possibility was discussed with family and final decision is pending. PMH: Alzheimer's, dementia, COPD, HTN, Soc. Hx: [facility] resident, , children involved in care Fam. Hx: father was with demntia Review of Systems - Review of Systems All systems: reviewed and no additional remarkable complaints except Review of Systems: ROS obtained from nursing. Patient very lethargic. No acute overnight events. Past Patient History - Past Medical History & Family History Past Medical History?: Yes - Past Social History Smoking Status: Former Smoker - CARDIAC Hx Hypercholesterolemia: Yes Hx Hypertension: Yes - PULMONARY Hx Chronic Obstructive Pulmonary Disease (COPD): Yes - NEUROLOGICAL Hx Alzheimer's Disease: Yes Hx Dementia: Yes - HEENT Other/Comment: uses eyeglases - RENAL Hx Chronic Kidney Disease: Yes - ENDOCRINE/METABOLIC Hx Endocrine Disorders: No - HEMATOLOGICAL/ONCOLOGICAL Hx Blood Disorders: No - INTEGUMENTARY Hx Dermatological Problems: No - MUSCULOSKELETAL/RHEUMATOLOGICAL Hx Arthritis: Yes (bilateral knee pain) - GASTROINTESTINAL Hx Gastrointestinal Disorders: No - GENITOURINARY/GYNECOLOGICAL Hx Genitourinary Disorders: No - PSYCHIATRIC Hx Substance Use: No - SURGICAL HISTORY Hx Surgeries: Yes Hx Cataract Extraction: Yes Hx Hysterectomy: Yes Other/Comment: colectomy 2004, colon ca. loop recorder on left chest area - ANESTHESIA Hx Anesthesia: Yes Hx Anesthesia Reactions: No Hx Malignant Hyperthermia: No Meds Allergies/Adverse Reactions: Allergies Allergy/AdvReac Type Severity Reaction Status Date / Time No Known Allergies Allergy Verified 06/15/17 18:06 - Medications Medications: Current Medications Acetaminophen (Tylenol 325mg Tab) 650 mg PO Q4H PRN PRN Reason: Temperature Albuterol/Ipratropium (Duoneb 3 Mg/0.5 Mg (3 Ml) Ud) 3 ml INH RQ6 PRN PRN Reason: Shortness of Breath Last Admin: 06/17/17 19:57 Dose: 3 ml Emollient Ointment (Vaseline Oint) 5 gm TOP Q4 PJ Last Admin: 06/18/17 12:35 Dose: 5 gm Heparin Sodium (Porcine) (Heparin) 5,000 units SC Q12 [facility] Last Admin: 06/18/17 10:18 Dose: 5,000 units Sodium Chloride (Sodium Chloride 0.9%) 1,000 mls @ 60 mls/hr IV .[id number] [facility] Last Admin: 06/17/17 21:36 Dose: 60 mls/hr Rosuvastatin Calcium (Crestor) 5 mg PO HS [facility] Last Admin: 06/17/17 21:34 Dose: 5 mg Physical Exam - Head Exam Head Exam: ATRAUMATIC, NORMAL INSPECTION, NORMOCEPHALIC - Eye Exam Eye Exam: EOMI, Normal appearance, PERRL Pupil Exam: NORMAL ACCOMODATION, PERRL - ENT Exam ENT Exam: Mucous Membranes Moist, Normal Exam - Neck Exam Neck exam: Positive for: Normal Inspection - Respiratory Exam Respiratory Exam: Decreased Breath Sounds, Clear to Auscultation Bilateral, NORMAL BREATHING PATTERN - Cardiovascular Exam Cardiovascular Exam: REGULAR RHYTHM - GI/Abdominal Exam GI & Abdominal Exam: Hypoactive Bowel Sounds, Soft - Rectal Exam Rectal Exam: Deferred - Extremities Exam Extremities exam: Positive for: pedal edema - Back Exam Back exam: NORMAL INSPECTION - Neurological Exam Neurological exam: Alert, Altered - Psychiatric Exam Psychiatric exam: Flat Affect - Skin Skin Exam: Dry, Intact, Normal Color, Warm Results - Vital Signs Recent Vital Signs: Last Vital Signs Temp 98.1 F 06/18/17 08:00 Pulse 70 06/18/17 08:00 Resp 20 06/18/17 08:00 BP 128/73 06/18/17 08:00 Pulse Ox 95 06/18/17 08:00 - Labs Result Diagrams: 06/18/17 08:36 06/18/17 08:36 Labs: Laboratory Results - last 24 hr 06/18/17 06/18/17 06/18/17 08:36 08:36 08:36 WBC 8.2 RBC 4.14 Hgb 13.3 Hct 40.8 MCV 98.6 MCH 32.0 H MCHC 32.5 L RDW 15.0 H Plt Count 171 MPV 10.2 PT 12.4 H INR 1.1 APTT 30 Sodium 147 Potassium 4.9 Chloride 113 H Carbon Dioxide 23 Anion Gap 15 BUN 29 H Creatinine 1.5 H Est GFR ( Amer) 40 Est GFR (Non-Af Amer) 33 Random Glucose 106 H Calcium 9.4 Total Bilirubin 0.8 AST 42 H ALT 32 Alkaline Phosphatase 71 Total Protein 7.2 Albumin 3.6 Globulin 3.6 Albumin/Globulin Ratio 1.0 Assessment & Plan - Assessment and Plan (Free Text) Assessment: Palliative consult Code status Unknown, no Advance Directive/Living Will on chart I reviewed medical records, all diagnostic studies, examined patient in the bed and discussed her clinical presentation with Brayden CORN DETASSELER MACHINE OPERATOR. Patient is lethargic, very sleepy not readily responding to voice stimuli. Patient very briefly opened her eyes upon gentle shaking, made one or two very soft words which meaning I did not understand and went back to sleep immediately. Per nursing, patient has taken about 10 % of her meal and if she took it, she would packet food in her mouth or chew on it for very long time. The PO liquid intake poor as well. BP 128/73, O2Sat 95%. WBC 8.2, Hb 13.3, Platelets 171. The rest of physical exam is negative acute findings. Impression * Increased sleepiness and lethargy are most likely due to combination of dementia and dehydration * Poor PO intake most likely due to advanced dementia * Patient is unable to advocate for her self due to condition * Patient's wishes for the end of life care are not known * Patient's son Nic advocates for patient and is considering PEG tube Suggestion * Would keep NPO as patient may aspirate due to lethargy * IV hydration Will meet with patient's son today for further goals of care discussion.
[2017-06-18] MEDS: Sodium Chloride 0.9% 1,000 ML IV SCH (14:16)
[2017-06-18] MEDS: Dextrose 5%/0.45% NS 1,000 ML IV SCH (18:40)
--- NOTE | 2017-06-18 22:14 | CP.PCM.PN ---
Subjective - Date & Time of Evaluation Date of Evaluation: 06/18/17 Time of Evaluation: 22:14 - Subjective Subjective: The patient was seen by blue leather sorter. Patient was also seen by palliative care nurse practitioner Patient is awake and responding. But disoriented. Very poorly eating at this time. Receiving IV fluid Vital signs: Temp Pulse Resp BP Pulse Ox 98.4 F 69 20 100/64 100 06/19/17 00:00 06/19/17 00:00 06/19/17 00:00 06/19/17 00:00 06/19/17 00:00 Chest bilateral good air entry, regular heart tone, abdomen nontender, edema noted 06/18/17 08:36 06/18/17 08:36 Assessment and recommendation: 86-year-old female with a history of dementia, hypertension, pulmonary hypertension, recent recurrent hospitalization. Poor appetite, poor intake, a developing worsening mentation. Delirium noted. Poor intake. Dehydration. Associated with the renal failure Family agreed for PEG tube, awaiting for PEG tube placement and will follow the patient. Objective - Vital Signs/Intake and Output Vital Signs (last 24 hours): Temp Pulse Resp BP Pulse Ox 98.6 F 70 20 132/74 100 06/18/17 15:00 06/18/17 15:00 06/18/17 15:00 06/18/17 15:00 06/18/17 15:00 Intake and Output: 06/18/17 06/19/17 18:59 06:59 Intake Total 600 Balance 600 - Medications Medications: Current Medications Acetaminophen (Tylenol 325mg Tab) 650 mg PO Q4H PRN PRN Reason: Temperature Albuterol/Ipratropium (Duoneb 3 Mg/0.5 Mg (3 Ml) Ud) 3 ml INH RQ6 PRN PRN Reason: Shortness of Breath Last Admin: 06/17/17 19:57 Dose: 3 ml Emollient Ointment (Vaseline Oint) 5 gm TOP Q4 PJ Last Admin: 06/18/17 20:30 Dose: 5 gm Heparin Sodium (Porcine) (Heparin) 5,000 units SC Q12 PJ Last Admin: 06/18/17 10:18 Dose: 5,000 units Dextrose/Sodium Chloride (Dextrose 5%/0.45% Ns 1000 Ml) 1,000 mls @ 40 mls/hr IV .Q24H PJ Last Admin: 06/18/17 18:40 Dose: 40 mls/hr Rosuvastatin Calcium (Crestor) 5 mg PO HS PJ Last Admin: 06/18/17 21:55 Dose: 5 mg - Labs Labs: 06/18/17 08:36 06/18/17 08:36 PT 12.4 SECONDS (9.7-12.2) H 06/18/17 08:36 INR 1.1 06/18/17 08:36 APTT 30 SECONDS (21-34) 06/18/17 08:36
[2017-06-19] MEDS: Petrolatum Oint Foilpak (5 gm) TOP SCH ×5 (03:37→20:00)
[2017-06-19] MEDS ORDERED: Etomidate 20 mg/10ml Inj IV ONE (13:08)
[2017-06-19] MEDS ORDERED: ceFAZolin IV 1 gm in Dextrose 1 GM/50 ML BAG IVPB ONE ×2 (13:17→13:26)
[2017-06-19 14:25] VITALS: RESP 20
--- NOTE | 2017-06-19 16:11 | CP.PCM.PN ---
Subjective - Date & Time of Evaluation Date of Evaluation: 06/19/17 Time of Evaluation: 15:50 - Subjective Subjective: PT BACK FROM PEG INSERTED AND APPEARS TO HAVE TOLERATED WELL. PT FOUND LAYING IN BED, DROWSY FROM ANESTHESIA. NO FAMILY AT BEDSIDE AT THIS TIME. WILL DISCUSS WITH ANDRESSA (PT'S SON) TOMORROW WHEN HE COMES IN THE PLAN FOR DISPOSITION. PER GI THEY WILL START PEG FEEDS TOMORROW MORNING. KEEP NPO. NO FURTHER ORDERS. Objective - Vital Signs/Intake and Output Vital Signs (last 24 hours): Temp Pulse Resp BP Pulse Ox 97 F L 67 20 147/86 100 06/19/17 13:50 06/19/17 14:20 06/19/17 14:20 06/19/17 14:20 06/19/17 14:20 Intake and Output: 06/19/17 06/19/17 06:59 18:59 Intake Total 880 600 Balance 880 600 - Medications Medications: Current Medications Acetaminophen (Tylenol 325mg Tab) 650 mg PO Q4H PRN PRN Reason: Temperature Albuterol/Ipratropium (Duoneb 3 Mg/0.5 Mg (3 Ml) Ud) 3 ml INH RQ6 PRN PRN Reason: Shortness of Breath Last Admin: 06/17/17 19:57 Dose: 3 ml Emollient Ointment (Vaseline Oint) 5 gm TOP Q4 [facility] Last Admin: 06/19/17 12:01 Dose: Not Given Heparin Sodium (Porcine) (Heparin) 5,000 units SC Q12 [facility] Last Admin: 06/18/17 10:18 Dose: 5,000 units Dextrose/Sodium Chloride (Dextrose 5%/0.45% Ns 1000 Ml) 1,000 mls @ 40 mls/hr IV .Q24H PJ Last Admin: 06/18/17 18:40 Dose: 40 mls/hr Rosuvastatin Calcium (Crestor) 5 mg PO HS PJ Last Admin: 06/18/17 21:55 Dose: 5 mg - Labs Labs: 06/18/17 08:36 06/18/17 08:36 PT 12.4 SECONDS (9.7-12.2) H 06/18/17 08:36 INR 1.1 06/18/17 08:36 APTT 30 SECONDS (21-34) 06/18/17 08:36
[2017-06-19] MEDS: Dextrose 5%/0.45% NS 1,000 ML IV SCH (18:30)
[2017-06-20] MEDS: Petrolatum Oint Foilpak (5 gm) TOP SCH ×7 (05:22→23:55)
--- NOTE | 2017-06-20 07:23 | CP.PCM.PN ---
<Lilibeth Bhatt - Last Filed: 06/20/17 11:17> Subjective - Date & Time of Evaluation Date of Evaluation: 06/20/17 Time of Evaluation: 07:20 - Subjective Subjective: Gastroenterology Fellow/PGY5 Progress Note Patient resting comfortably. Nursing denies acute issues overnight with PEG used for water flushes and medicine administration. A 12-point review of systems unable to be completed due to dementia. Objective - Vital Signs/Intake and Output Vital Signs (last 24 hours): Temp Pulse Resp BP Pulse Ox 97.4 F L 71 20 113/71 98 06/19/17 23:59 06/19/17 23:59 06/19/17 23:59 06/19/17 23:59 06/19/17 23:59 Intake and Output: 06/20/17 06/20/17 06:59 18:59 Intake Total 620 Balance 620 - Medications Medications: Current Medications Acetaminophen (Tylenol 325mg Tab) 650 mg PO Q4H PRN PRN Reason: Temperature Last Admin: 06/19/17 20:36 Dose: 650 mg Albuterol/Ipratropium (Duoneb 3 Mg/0.5 Mg (3 Ml) Ud) 3 ml INH RQ6 PRN PRN Reason: Shortness of Breath Last Admin: 06/17/17 19:57 Dose: 3 ml Emollient Ointment (Vaseline Oint) 5 gm TOP Q4 PJ Last Admin: 06/20/17 05:22 Dose: 5 gm Heparin Sodium (Porcine) (Heparin) 5,000 units SC Q12 PJ Last Admin: 06/18/17 10:18 Dose: 5,000 units Dextrose/Sodium Chloride (Dextrose 5%/0.45% Ns 1000 Ml) 1,000 mls @ 40 mls/hr IV .Q24H PJ Last Admin: 06/19/17 18:30 Dose: 40 mls/hr Rosuvastatin Calcium (Crestor) 5 mg PO HS PJ Last Admin: 06/19/17 21:38 Dose: 5 mg - Labs Labs: 06/18/17 08:36 06/18/17 08:36 PT 12.4 SECONDS (9.7-12.2) H 06/18/17 08:36 INR 1.1 06/18/17 08:36 APTT 30 SECONDS (21-34) 06/18/17 08:36 - Constitutional Appears: Non-toxic, No Acute Distress - Head Exam Head Exam: ATRAUMATIC, NORMOCEPHALIC - Eye Exam Eye Exam: EOMI, PERRL Pupil Exam: PERRL. absent: Miosis, Mydriatic - ENT Exam ENT Exam: Mucous Membranes Moist, Normal Oropharynx - Neck Exam Neck Exam: Full ROM, Normal Inspection - Respiratory Exam Respiratory Exam: Clear to Ausculation Bilateral. absent: Rales, Rhonchi, Wheezes - Cardiovascular Exam Cardiovascular Exam: RRR, +S1, +S2. absent: Gallop, Rubs - GI/Abdominal Exam GI & Abdominal Exam: Soft, Normal Bowel Sounds. absent: Distended, Firm, Guarding, Rigid, Tenderness, Organomegaly, Rebound Additional comments: PEG site C/D/I, dressing in place, no signs of bleeding - Extremities Exam Extremities Exam: Pedal Edema - Neurological Exam Additional comments: limited exam in setting of dementia, nonverbal to questioning - Psychiatric Exam Additional comments: unable to assess due to dementia - Skin Skin Exam: Dry, Intact, Normal Color, Warm Assessment and Plan - Assessment and Plan (Free Text) Assessment: 86 year old female with history of Dementia, Hypertension, Hyperlipidemia presenting from nursing facility due to weakness, poor oral intake, hypotension , and WHIT. Active treatment of renal insufficiency 2/2 dehydration and failure to thrive POD1 (06/19) PEG placement. Plan: >PEG used for water flushes and meds overnight without complications >start tube feeds >DVT PPx can be restarted >finely chopped diet as tolerated >medicine team managing renal insufficiency >Thank you for opportunity to participate in the care of this patient. Please contact with questions or concerns. <Chava Fu - Last Filed: 06/20/17 14:05> Objective - Vital Signs/Intake and Output Vital Signs (last 24 hours): Temp Pulse Resp BP Pulse Ox 98.1 F 75 20 113/74 100 06/20/17 07:43 06/20/17 07:43 06/20/17 07:43 06/20/17 07:43 06/20/17 07:43 Intake and Output: 06/20/17 06/20/17 06:59 18:59 Intake Total 620 320 Balance 620 320 - Medications Medications: Current Medications Acetaminophen (Tylenol 325mg Tab) 650 mg PO Q4H PRN PRN Reason: Temperature Last Admin: 06/19/17 20:36 Dose: 650 mg Albuterol/Ipratropium (Duoneb 3 Mg/0.5 Mg (3 Ml) Ud) 3 ml INH RQ6 PRN PRN Reason: Shortness of Breath Last Admin: 06/17/17 19:57 Dose: 3 ml Emollient Ointment (Vaseline Oint) 5 gm TOP Q4 PJ Last Admin: 06/20/17 12:00 Dose: 5 gm Heparin Sodium (Porcine) (Heparin) 5,000 units SC Q12 PJ Last Admin: 06/18/17 10:18 Dose: 5,000 units Dextrose/Sodium Chloride (Dextrose 5%/0.45% Ns 1000 Ml) 1,000 mls @ 40 mls/hr IV .Q24H PJ Last Admin: 06/19/17 18:30 Dose: 40 mls/hr Rosuvastatin Calcium (Crestor) 5 mg PO HS PJ Last Admin: 06/19/17 21:38 Dose: 5 mg - Labs Labs: 06/18/17 08:36 06/18/17 08:36 PT 12.4 SECONDS (9.7-12.2) H 06/18/17 08:36 INR 1.1 06/18/17 08:36 APTT 30 SECONDS (21-34) 06/18/17 08:36 Attending/Attestation - Attestation I have personally seen and examined this patient.: Yes I have fully participated in the care of the patient.: Yes I have reviewed all pertinent clinical information, including history, physical exam and plan: Yes Notes (Text): 06/20/17 14:05 86 year old female with h/o advanced dementia, care home resident admitted with hypotension/WHIT due to dehydration from lack of oral intake. 1. Failure to thrive 2. Dementia 3. S/P PEG Plan: -peg placed yesterday, adjusted today -no apparent complications -start tube feedings per nutrition -will sign off
--- NOTE | 2017-06-20 15:00 | CP.PCM.PN ---
Subjective - Date & Time of Evaluation Date of Evaluation: 06/20/17 Time of Evaluation: 14:46 - Subjective Subjective: DISCUSSED D/C PLANNING WITH CARD SELLER AND BENEFITS CLERK. PT IS GOING TO RETURN TO [facility] OVER THE WEEKEND (EITHER FRIDAY OR FRIDAY). PT HAS PEG FEEDINGS INFUSING AT THIS TIME; D/C PENDING PT TOLERATING THE FEEDINGS. D/C INSTRUCTIONS STARTED AND WILL BE FINALIZED DURING TIME OF D/C BY FOLLOWING IT SECURITY PROJECT MANAGER OR MD. WILL ENDORSE TO [facility] IN CASE PT D/C TOMORROW. IT SECURITY PROJECT MANAGER WAITING TO DISCUSS PLAN WITH PT'S FAMILY AND SON ANDRESSA, HOWEVER, NO FAMILY AT BEDSIDE TODAY. NO FURTHER ORDERS FOR NOW. Objective - Vital Signs/Intake and Output Vital Signs (last 24 hours): Temp Pulse Resp BP Pulse Ox 98.1 F 75 20 113/74 100 06/20/17 07:43 06/20/17 07:43 06/20/17 07:43 06/20/17 07:43 06/20/17 07:43 Intake and Output: 06/20/17 06/20/17 06:59 18:59 Intake Total 620 745 Balance 620 745 - Medications Medications: Current Medications Acetaminophen (Tylenol 325mg Tab) 650 mg PO Q4H PRN PRN Reason: Temperature Last Admin: 06/19/17 20:36 Dose: 650 mg Albuterol/Ipratropium (Duoneb 3 Mg/0.5 Mg (3 Ml) Ud) 3 ml INH RQ6 PRN PRN Reason: Shortness of Breath Last Admin: 06/17/17 19:57 Dose: 3 ml Emollient Ointment (Vaseline Oint) 5 gm TOP Q4 PJ Last Admin: 06/20/17 12:00 Dose: 5 gm Heparin Sodium (Porcine) (Heparin) 5,000 units SC Q12 PJ Last Admin: 06/18/17 10:18 Dose: 5,000 units Dextrose/Sodium Chloride (Dextrose 5%/0.45% Ns 1000 Ml) 1,000 mls @ 40 mls/hr IV .Q24H PJ Last Admin: 06/19/17 18:30 Dose: 40 mls/hr Rosuvastatin Calcium (Crestor) 5 mg PO HS PJ Last Admin: 06/19/17 21:38 Dose: 5 mg - Labs Labs: 06/18/17 08:36 06/18/17 08:36 PT 12.4 SECONDS (9.7-12.2) H 06/18/17 08:36 INR 1.1 06/18/17 08:36 APTT 30 SECONDS (21-34) 06/18/17 08:36
[2017-06-20 17:34] LABS: BASO # 0.1 K/uL (0.0-0.2); BASO % 0.6 % (0.0-2.0); EOS # 0.3 K/uL (0.0-0.7); EOS % 2.9 % (0.0-4.0); LYMPH # 1.3 K/uL (1.0-4.3); LYMPH % 12.3 % (20.0-40.0); MEAN CELL VOLUME 97.8 fL (81.0-99.0); MEAN CORPUSCULAR HEMOGLOBIN 32.2 pg (27.0-31.0); MEAN CORPUSCULAR HGB CONC 32.9 g/dL (33.0-37.0); MEAN PLATELET VOLUME 10.4 fL (7.2-11.7); MONO # 0.8 K/uL (0.0-0.8); MONO % 7.4 % (0.0-10.0); RED CELL DISTRIBUTION WIDTH 14.7 % (11.5-14.5); WHITE BLOOD COUNT 10.6 K/uL (4.8-10.8)
[2017-06-20 17:59] LABS: ALB/GLOB RATIO 1.1 (1.0-2.1); BILIRUBIN,TOTAL 0.7 mg/dL (0.2-1.3)
[2017-06-20 18:00] LABS: CALCIUM 9.3 mg/dl (8.6-10.4)
[2017-06-20] MEDS: Dextrose 5%/0.45% NS 1,000 ML IV SCH (18:30)
--- NOTE | 2017-06-20 23:42 | CP.PCM.PN ---
Subjective - Date & Time of Evaluation Date of Evaluation: 06/20/17 Time of Evaluation: 23:42 Objective - Vital Signs/Intake and Output Vital Signs (last 24 hours): Temp Pulse Resp BP Pulse Ox 98.3 F 89 20 139/75 97 06/20/17 15:30 06/20/17 15:30 06/20/17 15:30 06/20/17 15:30 06/20/17 15:30 Intake and Output: 06/20/17 06/21/17 18:59 06:59 Intake Total 745 1140 Balance 745 1140 - Medications Medications: Current Medications Acetaminophen (Tylenol 325mg Tab) 650 mg PO Q4H PRN PRN Reason: Temperature Last Admin: 06/19/17 20:36 Dose: 650 mg Emollient Ointment (Vaseline Oint) 5 gm TOP Q4 PJ Last Admin: 06/20/17 20:00 Dose: 5 gm Heparin Sodium (Porcine) (Heparin) 5,000 units SC Q12 PJ Last Admin: 06/18/17 10:18 Dose: 5,000 units Rosuvastatin Calcium (Crestor) 5 mg PO HS [facility] Last Admin: 06/20/17 21:37 Dose: 5 mg - Labs Labs: 06/20/17 17:23 06/20/17 17:58 PT 12.4 SECONDS (9.7-12.2) H 06/18/17 08:36 INR 1.1 06/18/17 08:36 APTT 30 SECONDS (21-34) 06/18/17 08:36
[2017-06-21] MEDS: Petrolatum Oint Foilpak (5 gm) TOP SCH ×4 (03:06→16:44)
[2017-06-21 08:26] LABS: HEMATOCRIT 37.3 % (34.0-47.0); MEAN CELL VOLUME 98.7 fL (81.0-99.0); MEAN CORPUSCULAR HEMOGLOBIN 32.6 pg (27.0-31.0); MEAN PLATELET VOLUME 11.3 fL (7.2-11.7); RED CELL DISTRIBUTION WIDTH 15.2 % (11.5-14.5); WHITE BLOOD COUNT 8.9 K/uL (4.8-10.8)
[2017-06-21 09:04] LABS: POTASSIUM 3.9 mmol/L (3.6-5.2)
[2017-06-21 09:06] LABS: ALB/GLOB RATIO 1.1 (1.0-2.1); BILIRUBIN,TOTAL 0.5 mg/dL (0.2-1.3); TOTAL PROTEIN 5.7 g/dL (6.3-8.3)
[2017-06-21 09:07] LABS: CALCIUM 9.3 mg/dl (8.6-10.4)
[2017-06-21 15:56] VITALS: BP 105/59; PULSE 45; TEMP 98.5; O2SAT 94
--- NOTE | 2017-06-21 16:42 | CP.PCM.PN ---
Subjective - Date & Time of Evaluation Date of Evaluation: 06/21/17 Time of Evaluation: 11:00 - Subjective Subjective: sleepy but arousable, no sob, abdomen soft, no distention PEG site with no bleeding. Objective - Vital Signs/Intake and Output Vital Signs (last 24 hours): Temp Pulse Resp BP Pulse Ox 98.5 F 45 L 20 105/59 L 94 L 06/21/17 15:00 06/21/17 15:00 06/21/17 15:00 06/21/17 15:00 06/21/17 15:00 Intake and Output: 06/21/17 06/21/17 06:59 18:59 Intake Total 1535 395 Balance 1535 395 - Medications Medications: Current Medications Acetaminophen (Tylenol 325mg Tab) 650 mg PO Q4H PRN PRN Reason: Temperature Last Admin: 06/19/17 20:36 Dose: 650 mg Emollient Ointment (Vaseline Oint) 5 gm TOP Q4 PJ Last Admin: 06/21/17 12:34 Dose: 5 gm Heparin Sodium (Porcine) (Heparin) 5,000 units SC Q12 PJ Last Admin: 06/21/17 09:48 Dose: 5,000 units Rosuvastatin Calcium (Crestor) 5 mg PO HS PJ Last Admin: 06/20/17 21:37 Dose: 5 mg - Labs Labs: 06/21/17 08:15 06/21/17 08:15 PT 12.4 SECONDS (9.7-12.2) H 06/18/17 08:36 INR 1.1 06/18/17 08:36 APTT 30 SECONDS (21-34) 06/18/17 08:36 Assessment and Plan - Assessment and Plan (Free Text) Assessment: Patient admitted with decreased oral intake, seen and examined. S/P PEG placement 2 days ago and started feeding from yesterday. Tolerating well , no vomiting or diarrhea noted. No fever or any acute distress. D/W DR Diaz and plan to discharge [place] today as planned. The son made aware and in agreement with the plan.
== END 2017-06-21 16:41 | DRG 683 ==
LOC: C.ER 17:58 → C.9E 20:13 → C.3T 20:45
PROVIDERS: ADMIT Internal Medicine; ATTEND Internal Medicine
PROC: 0DH68UZ Insertion of Feeding Device into Stomach, Via Natural or Artificial Opening Endoscopic (ICD-10-PCS; principal; 2017-06-19 13:10)
PROC: 3E0G76Z Introduction of Nutritional Substance into Upper GI, Via Natural or Artificial Opening (ICD-10-PCS; 2017-06-20)
DX: N17.9 Acute kidney failure, unspecified (principal); E86.0 Dehydration; R62.7 Adult failure to thrive; E46 Unspecified protein-calorie malnutrition; I13.0 Hypertensive heart and chronic kidney disease with heart failure and stage 1 through stage 4 chronic kidney disease, or unspecified chronic kidney disease; I50.30 Unspecified diastolic (congestive) heart failure; J44.9 Chronic obstructive pulmonary disease, unspecified; N18.9 Chronic kidney disease, unspecified; G30.9 Alzheimer's disease, unspecified; F02.80 Dementia in other diseases classified elsewhere, unspecified severity, without behavioral disturbance, psychotic disturbance, mood disturbance, and anxiety; I27.20 Pulmonary hypertension, unspecified; K29.70 Gastritis, unspecified, without bleeding; K44.9 Diaphragmatic hernia without obstruction or gangrene; K29.80 Duodenitis without bleeding; M17.0 Bilateral primary osteoarthritis of knee; E78.5 Hyperlipidemia, unspecified; E78.00 Pure hypercholesterolemia, unspecified; Z85.038 Personal history of other malignant neoplasm of large intestine; Z87.891 Personal history of nicotine dependence; Z90.710 Acquired absence of both cervix and uterus